=== PATIENT | female | born 1960 | race African-American/Black ===

== ENCOUNTER 2017-05-04 10:24 | Observation (INO) | payer MEDICARE, OTHER ==
[2017-05-04] VITALS (8 sets, daily range): BP systolic 99–139; BP diastolic 56–80; PULSE 56–80; RESP 15–18; TEMP 98–98.4; O2SAT 96–100
[~2017-05-04] VITALS: Ht 160 cm; Wt 120.0 kg
[~2017-05-04 10:24] MED LIST: ADVA250A INH; ALBU0.63 NEB; AMLO10TA2 PO; CARV12.5 PO; FISHCAP4 PO; FLUT1SPR5 EACH NARE; GABA300C5 PO; HYDR-3535 PO; IBUP800T23 PO; LIPI20TA PO; LOSA100T3 PO; METF500T PO; MONT10TA2 PO; MULTTAB67 PO; NITR1SUB3 SL; XARE20TA PO
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
[2017-05-04] MEDS ORDERED: ASPI81CH CHEW (10:41)
[2017-05-04] MEDS ORDERED: PLAV75TA29 PO (10:41)
[2017-05-04] MEDS ORDERED: NITR0.1D T-DERMAL (10:41)
[2017-05-04] MEDS ORDERED: SODIUM CHLORIDE 0.9% FLUSH 10 ML FLUSH IVF PRN (10:45)
[2017-05-04 11:14] LABS: AUTOMATED NEUTROPHIL # 3.5 TH/MM3 (1.8-7.7); BASOPHIL % 0.4 % (0.0-2.0); EOSINOPHIL # 0.2 TH/MM3 (0-0.4); EOSINOPHIL % 2.4 % (0.0-4.0); HEMATOCRIT 36.5 % (35.0-46.0); HEMO FLAGS DIFF FINAL; LYMPH % 35.3 % (9.0-44.0); LYMPHOCYTE # 2.4 TH/MM3 (1.0-4.8); MEAN CORPUSCULAR HEMOGLOBIN 31.5 PG (27.0-34.0); MEAN CORPUSCULAR HGB CONC 32.9 % (32.0-36.0); MONO % 9.5 % (0.0-8.0); NEUT % 52.4 % (16.0-70.0); PLATELET COUNT 229 TH/MM3 (150-450); RED CELL DISTRIBUTION WIDTH 15.3 % (11.6-17.2); WHITE BLOOD COUNT 6.8 TH/MM3 (4.0-11.0)
--- NOTE | 2017-05-04 11:14 | RADRPT ---
EXAM DATE/TIME: 05/04/2017 10:55 [facility] COMPARISON: KNEE RIGHT COMPLETE (4VWS), June 13, 2012, 11:18. INDICATIONS : Knee pain. MEDICAL HISTORY : Chronic knee pain. Arthritis. SURGICAL HISTORY : Gel knee injection. ENCOUNTER: Initial ACUITY: 2 months PAIN SCORE: 6/10 LOCATION: Right knee. FINDINGS: Moderate osteoporosis of the knee involving all 3 compartments. This is most pronounced at the latera l tibiofemoral compartment with moderate to severe narrowing, sclerosis and marginal osteophytosis. S mall knee joint effusion. No fracture or dislocation. CONCLUSION: Small effusion and osteoarthritis. Morro Lindsey MD on May 04, 2017 at 11:12 Board Certified Radiologist. This report was verified electronically.
--- NOTE | 2017-05-04 11:14 | RADRPT ---
EXAM DATE/TIME: 05/04/2017 10:51 [facility] COMPARISON: No previous studies available for comparison. INDICATIONS : Shortness of breath and chest pain. MEDICAL HISTORY : Chronic obstructive pulmonary disease. Myocardial infarction. SURGICAL HISTORY : Cardiac stent x3. ENCOUNTER: Initial ACUITY: 1 day PAIN SCORE: 1/10 LOCATION: Bilateral chest FINDINGS: Cardiomegaly. Degenerative changes of the spine. Clear lungs. CONCLUSION: No acute disease. Morro Lindsey MD on May 04, 2017 at 11:12 Board Certified Radiologist. This report was verified electronically.
[2017-05-04 11:23] LABS: APTT (PATIENT) 35.1 SEC (24.3-30.1); INTERNATIONAL NORMALIZED RATIO 1.2 RATIO; PROTHROMBIN TIME - PATIENT 13.5 SEC (9.8-11.6)
[2017-05-04 11:31] LABS: BICARBONATE 26.7 MEQ/L (21.0-32.0); MAGNESIUM 2.2 MG/DL (1.5-2.5); POTASSIUM 4.2 MEQ/L (3.5-5.1)
[2017-05-04 11:47] LABS: CKMB 1.7 NG/ML (0.5-3.6)
[2017-05-04] MEDS ORDERED: SODIUM CHLORIDE 0.9% FLUSH 10 ML FLUSH IV FLUSH PRN (13:15)
[2017-05-04] MEDS ORDERED: ACETAMINOPHEN/HYDROcodone 325 MG/5 MG TAB PO PRN (13:15)
[2017-05-04] MEDS ORDERED: ACETAMINOPHEN 325 MG TAB PO PRN ×2 (13:15)
[2017-05-04] MEDS ORDERED: NALOXONE HCL 0.4 MG/ML AMP IV PRN (13:15)
[2017-05-04] MEDS ORDERED: SODIUM CHLOR 0.9% 1000 ML INJ 1,000 ML IV SCH (14:30)
[2017-05-04] MEDS: RIVAROXABAN 20 MG TAB PO SCH (14:55)
[2017-05-04] MEDS ORDERED: cloNIDine HCL 0.1 MG TAB PO PRN (15:30)
--- NOTE | 2017-05-04 15:34 | HHI.HP ---
[facility] Karlos Du MD Admission Diagnosis Chest pain/TAO Diagnoses: Chief Complaint: Chest pain, shortness breath, knee pain Travel History International Travel<30 Days: No Contact w/Intl Traveler <30 Da: No Traveled to Known Affected Are: No History of Present Illness Written by Matt Massey, acting as scribe for Dr. Tracy on 05/04/17 at 15:23. 56-year-old female with a past medical history of CAD, DM, DVT, HLD, HTN, COPD, chronic pain who presented for chest pain and shortness of breath. The patient had 2 stents put in on May 01 by her customs investigator, Dr. Walker. She states the pain improved and she went home. After she went home the pain started to come back. She states that last night she was having some midsternal chest discomfort, 8/10 in severity. She states she put on her nitroglycerin patch and the pain decreased enough so that she can go to sleep. When she woke up this morning she had continued pain and worsening associated shortness of breath. Patient does have "a little" some chest discomfort when she takes a deep breath. She does have some pain whenever her chest is touched. The chest pain is worse with standing up and moving. She also had worsening of her chronic right knee pain when she woke up this morning as well. She's also noticed some swelling and discomfort from her right wrist where they did the catheterization. She follows with orthopedics at [facility] and is currently on hold for knee replacements due to chronic DVTs. She has been receiving joint injections for the knee pain. She's had decreased appetite recently this week. She denies any fevers or chills. She has cold sweats which are normal for her. She reports normal bowel movements. Currently her chronic back pain as 9/ 10 in severity. Review of Systems Except as stated in HPI: all other systems reviewed are Neg Past Family Social History Past Medical History Diabetes mellitus Coronary artery disease Chronic lower extremity DVTs Hyperlipidemia Hypertension COPD Chronic back and knee pain due to arthritis Neuropathy Past Surgical History Cardiac catheterizations with stent placements, prior to May 01 had a stent put in in 2007 Reported Medications Reported Meds & Active Scripts Active Reported Nitro-Dur Patch 24 HR (Nitroglycerin) 0.1 Mg/Hr Patch 0.1 Mg T-DERMAL DAILY Plavix (Clopidogrel Bisulfate) 75 Mg Tab 75 Mg PO DAILY Aspirin 81 Mg Chew 81 Mg CHEW DAILY Advair Diskus Inh (Fluticasone-Salmeterol Inh) 250-50 Mcg/Blist Aer 1 Puff INH BID Rinse mouth after use. Albuterol Neb (Albuterol Sulfate) 0.63 Mg/3 Ml Neb 0.63 Mg NEB Q6HR NEB PRN Singulair (Montelukast Sodium) 10 Mg Tab 10 Mg PO HS Amlodipine (Amlodipine Besylate) 10 Mg Tab 10 Mg PO DAILY Metformin (Metformin HCl) 500 Mg Tab 500 Mg PO BIDPC With meals Xarelto (Rivaroxaban) 20 Mg Tab 20 Mg PO DAILY Lipitor (Atorvastatin Calcium) 20 Mg Tab 20 Mg PO HS Nitroglycerin SL (Nitroglycerin) 0.4 Mg Subl 0.4 Mg SL DIRECTED PRN ONE TABLET UNDER THE TONGUE NEEDED FOR CHEST PAIN, MAY REPEAT EVERY FIVE MINUTES FOR A TOTAL OF 3 DOSES OR CALL 911 IF NO RELIEF Multiple Vitamin 1 Tab 1 Tab PO DAILY Losartan-Hydrochlorothiazide 100-12.5 Mg Tab 1 Tab PO DAILY Lortab (Hydrocodone-Acetaminophen) 10-325 Mg Tab 1 Tab PO Q6H PRN Gabapentin 300 Mg Cap 1,200 Mg PO BID Gabapentin 300 Mg Cap 900 Mg PO DAILY Fish Oil + D3 (Fish Oil-Cholecalciferol) 1,200-1,000 Mg-Unit Cap 1 Cap PO DAILY Coreg (Carvedilol) 12.5 Mg Tab 12.5 Mg PO BID Allergies: Coded Allergies: No Known Allergies (Verified , 01/16/12) Active Ordered Medications Current Medications Medications (Trade) Dose Ordered Sig/Gina Route Start Time Stop Time Status Last Admin (Norvasc) 10 mg DAILY PO 05/05/17 09:00 (Aspirin Chew) 81 mg DAILY CHEW 05/05/17 09:00 (Lipitor) 20 mg HS PO 05/04/17 21:00 (Coreg) 12.5 mg BID PO 05/04/17 21:00 (Plavix) 75 mg DAILY PO 05/05/17 09:00 (Neurontin) 600 mg TID PO 05/04/17 18:00 (Singulair) 10 mg HS PO 05/04/17 21:00 (Nitro-Dur 0.1 Mg Patch.24hr) 1 patch DAILY T-DERMAL 05/05/17 09:00 (Xarelto) 20 mg DAILY PO 05/04/17 15:00 05/04/17 14:55 (Symbicort 160-4.5 Inh) 2 puff BID INH 05/04/17 21:00 Sodium Chloride 1,000 ml @ 75 mls/hr [id number] IV 05/04/17 14:30 05/05/17 03:49 05/04/17 14:55 (NS Flush) 2 ml UNSCH PRN IV FLUSH 05/04/17 13:15 (NS Flush) 2 ml BID IV FLUSH 05/04/17 21:00 (Tylenol) 650 mg Q4H PRN PO 05/04/17 13:15 (Tylenol) 650 mg Q6H PRN PO 05/04/17 13:15 ([place] 5-325 Mg) 1 tab Q4H PRN PO 05/04/17 13:15 ([place] 10-325 Mg) 1 tab Q4H PRN PO 05/04/17 13:15 (Narcan Inj) 0.4 mg UNSCH PRN IV 05/04/17 13:15 (Breanne-Colace) 1 tab BID PO 05/04/17 21:00 Miscellaneous Information 1 DAILY T-DERMAL 05/05/17 09:00 (Catapres) 0.1 mg Q6H PRN PO 05/04/17 15:30 UNV Family History Diabetes mellitus Coronary artery disease Hypertension Social History Quit smoking 2 years ago Occasionally has a glass of wine Physical Exam Vital Signs Vital Signs Date Time Temp Pulse Resp B/P (MAP) Pulse Ox O2 Delivery O2 Flow Rate FiO2 05/04/17 14:18 98.4 63 16 121/68 (85) 100 05/04/17 14:14 05/04/17 13:46 98 Nasal Cannula 2.00 05/04/17 13:03 56 18 107/56 (73) 97 Nasal Cannula 2.00 05/04/17 11:06 78 18 05/04/17 10:45 96 Nasal Cannula 2.00 05/04/17 10:42 96 Nasal Cannula 2.00 05/04/17 10:27 98.2 80 15 139/72 (94) 98 Physical Exam GENERAL: Well-developed well-nourished. Morbidly obese. In no acute distress. Appears comfortable. SKIN: Warm and dry. No lesions noted. HEENT: Normocephalic. Pupils equal and round. Mucous membranes pink and moist. CARDIOVASCULAR: Regular rate and rhythm. Distant heart sounds. Tender to palpation of the sternum. RESPIRATORY: No accessory muscle use. Clear to auscultation. Breath sounds equal bilaterally. GASTROINTESTINAL: Abdomen soft, non-tender, nondistended. Bowel sounds x4. MUSCULOSKELETAL: Right knee with mild swelling. Limited ROM of right knee secondary to pain. Mild swelling of the right wrist. NEUROLOGICAL: Awake and alert. No focal neurological deficits. Moves upper and lower extremities spontaneously. Normal speech. PSYCHIATRIC: Appropriate mood and affect; insight and judgment normal. Laboratory Laboratory Tests Test 05/04/17 10:50 White Blood Count 6.8 Red Blood Count 3.80 Hemoglobin 12.0 Hematocrit 36.5 Mean Corpuscular Volume 96.0 Mean Corpuscular Hemoglobin 31.5 Mean Corpuscular Hemoglobin Concent 32.9 Red Cell Distribution Width 15.3 Platelet Count 229 Mean Platelet Volume 9.0 Neutrophils (%) (Auto) 52.4 Lymphocytes (%) (Auto) 35.3 Monocytes (%) (Auto) 9.5 Eosinophils (%) (Auto) 2.4 Basophils (%) (Auto) 0.4 Neutrophils # (Auto) 3.5 Lymphocytes # (Auto) 2.4 Monocytes # (Auto) 0.6 Eosinophils # (Auto) 0.2 Basophils # (Auto) 0.0 CBC Comment DIFF FINAL Differential Comment Prothrombin Time 13.5 Prothromb Time International Ratio 1.2 Activated Partial Thromboplast Time 35.1 Blood Urea Nitrogen 20 Creatinine 2.19 Random Glucose 140 Calcium Level 8.6 Magnesium Level 2.2 Sodium Level 141 Potassium Level 4.2 Chloride Level 107 Carbon Dioxide Level 26.7 Anion Gap 7 Estimat Glomerular Filtration Rate 28 Total Creatine Kinase 304 Creatine Kinase MB 1.7 Creatine Kinase MB % 0.6 Troponin I 0.09 Result Diagram: 05/04/17 1050 05/04/17 1050 Imaging Last Impressions Knee X-Ray 05/04/17 1038 Signed Impressions: Service Date/Time: Thursday, May 04, 2017 10:55 - CONCLUSION: Small effusion and osteoarthritis. Morro Lindsey MD Chest X-Ray 05/04/17 1037 Signed Impressions: Service Date/Time: Thursday, May 04, 2017 10:51 - CONCLUSION: No acute disease. MD Cruz Haney VTE Risk Assessment Cruz VTE Risk Assessment: Mod/High Risk (score >= 2) Caprini Risk Assessment Model Point Value = 1 Point Value = 2 Point Value = 3 Point Value = 5 Age 41-60 Minor surgery BMI > 25 kg/m2 Swollen legs Varicose veins or History of unexplained or recurrent spontaneous Oral contraceptives or hormone replacement Sepsis (< 1 month) Serious lung disease, including pneumonia (< 1 month) Abnormal pulmonary function Acute myocardial infarction Congestive heart failure (< 1 month) History of inflammatory bowel disease Medical patient at bed rest Age 61-74 Arthroscopic surgery Major open surgery (> 45 min) Laparoscopic surgery (> 45 min) Malignancy Confined to bed (> 72 hours) Immobilizing plaster cast Central venous access Age >= 75 History of VTE Family history of VTE Factor V Leiden Prothrombin [id number] Lupus anticoagulant Anticardiolipin antibodies Elevated serum homocysteine Heparin-induced thrombocytopenia Other congenital or acquired thrombophilia Stroke (< 1 month) Elective arthroplasty Hip, pelvis, or leg fracture Acute spinal cord injury (< 1 month) Prophylaxis Regimen Total Risk Factor Score Risk Level Prophylaxis Regimen 0-1 Low Early ambulation 2 Moderate Order ONE of the following: *Sequential Compression Device (SCD) *Heparin 5000 units SQ BID 3-4 Higher Order ONE of the following medications: *Heparin 5000 units SQ TID *Enoxaparin/Lovenox 40 mg SQ daily (WT < 150 kg, CrCl > 30 mL/min) *Enoxaparin/Lovenox 30 mg SQ daily (WT < 150 kg, CrCl > 10-29 mL/min) *Enoxaparin/Lovenox 30 mg SQ BID (WT < 150 kg, CrCl > 30 mL/min) AND/OR *Sequential Compression Device (SCD) 5 or more Highest Order ONE of the following medications: *Heparin 5000 units SQ TID (Preferred with Epidurals) *Enoxaparin/Lovenox 40 mg SQ daily (WT < 150 kg, CrCl > 30 mL/min) *Enoxaparin/Lovenox 30 mg SQ daily (WT < 150 kg, CrCl > 10-29 mL/min) *Enoxaparin/Lovenox 30 mg SQ BID (WT < 150 kg, CrCl > 30 mL/min) AND *Sequential Compression Device (SCD) Assessment and Plan Assessment and Plan 56-year-old female with a past medical history of CAD, DM, DVT, HLD, HTN, COPD, chronic pain who presented for chest pain and shortness of breath, acute on chronic right knee pain Chest pain and shortness of breath: Patient recently had catheterization with 2 stents placed on 05/01. Per ED report, troponin 0.09 is near patient's baseline per cardiology communication. Reviewed: Troponin 0.09. EKG with nonspecific T-wave changes. -Trend cardiac enzymes and EKGs -Consult patient's customs investigator -Continue aspirin, Plavix, statin, Nitropatch, carvedilol - telemetry Right knee pain: Acute on chronic secondary to arthritis. X-ray shows mild arthritis and effusion. -Continue pain control with [place] -PT -Continue outpatient follow-up with orthopedics Acute kidney injury: Suspect secondary to diuretics and poor appetite. Creatinine 2.19, previously 0.83 on 02/10/13. -Hold home losartan/HCTZ for now -IVF and follow-up BMP Diabetes mellitus: -Hold home metformin -Monitor Accu-Cheks and cover with SSI -Continue gabapentin for neuropathy Chronic DVTs: -Continue Xarelto Code Status Full code, but does not want any prolonged ventilation Discussed Condition With Patient, ED staff Attending Statement This note was transcribed by sherrie Massey. I, Dr. Marc Tracy personally performed the history, physical exam, and medical decision making; and confirmed the accuracy of the information in the transcribed note. Authenticated by Dr. Marc Tracy on 05/04/17 at 16:27. Matt Massey May 04, 2017 15:34 Marc Tracy DO May 04, 2017 16:27
[2017-05-04] MEDS: SODIUM CHLOR 0.9% 1000 ML INJ 1,000 ML IV SCH (15:45)
[2017-05-04] MEDS ORDERED: GLUCAGON 1 MG/ML VIAL OTHER PRN (16:00)
[2017-05-04] MEDS ORDERED: DEXTROSE 50% IN WATER 50 ML VIAL(D50) IV PRN (16:00)
[2017-05-04] MEDS: INSULIN ASPART SUPPLEMENTAL SCALE SQ SCH ×2 (16:00→21:00)
[2017-05-04] MEDS: ACETAMINOPHEN/HYDROcodone 325 MG/10 MG TAB PO PRN (16:27)
--- NOTE | 2017-05-04 17:33 | EKG ---
Date Performed: 05/04/2017 Time Performed: 11:05:55 PTAGE: 56 years EKG: Sinus rhythm SEPTAL MYOCARDIAL INFARCTION MODERATE T-WAVE ABNORMALITY, CONSIDER ANTERIOR ISCHEMIA ABNORMAL ECG PREVIOUS TRACING : 01/16/2012 11.17 DOCTOR: Moustapha Armendariz Interpretating Date/Time 05/04/2017 17:32:41
[2017-05-04] MEDS: GABAPENTIN 300 MG CAP PO SCH (18:18)
[2017-05-04] MEDS: BUDESONIDE-FORMOTEROL 160/4.5 MCG INHALER INH SCH (21:00)
[2017-05-04] MEDS: MONTELUKAST SODIUM 10 MG TAB PO SCH (21:23)
[2017-05-04] MEDS: ATORVASTATIN 20 MG TAB PO SCH (21:23)
[2017-05-04] MEDS: DOCUSATE SODIUM 50 MG/SENNA 8.6 MG TAB PO SCH (21:23)
[2017-05-04] MEDS: SODIUM CHLORIDE 0.9% FLUSH 10 ML FLUSH IV FLUSH SCH (21:24)
[2017-05-04] MEDS: CARVEDILOL 12.5 MG TAB PO SCH (21:24)
[2017-05-05] VITALS (13 sets, daily range): BP systolic 90–128; BP diastolic 57–97; PULSE 57–78; RESP 18; TEMP 96.8–98.4; O2SAT 96–98
[2017-05-05] MEDS: SODIUM CHLOR 0.9% 1000 ML INJ 1,000 ML IV SCH ×2 (04:53→10:01)
[2017-05-05] MEDS: INSULIN ASPART SUPPLEMENTAL SCALE SQ SCH ×4 (07:00→21:00)
[2017-05-05] MEDS: REMOVE OLD NITRO-DUR (NITROGLYCERIN) PATCH T-DERMAL SCH (09:00)
[2017-05-05] MEDS: SODIUM CHLORIDE 0.9% FLUSH 10 ML FLUSH IV FLUSH SCH ×2 (09:00→21:00)
--- NOTE | 2017-05-05 09:06 | EKG ---
Date Performed: 05/04/2017 Time Performed: 23:13:17 PTAGE: 56 years EKG: Sinus rhythm SEPTAL MYOCARDIAL INFARCTION ABNORMAL ECG PREVIOUS TRACING : 05/04/2017 17.24 DOCTOR: Moustapha Armendariz Interpretating Date/Time 05/05/2017 09:05:15
--- NOTE | 2017-05-05 09:22 | EKG ---
Date Performed: 05/04/2017 Time Performed: 17:24:01 PTAGE: 56 years EKG: Sinus rhythm SEPTAL MYOCARDIAL INFARCTION ABNORMAL ECG INTERPRETATION BASED ON A DEFAULT AGE OF 40 YEARS NO PREVIOUS TRACING DOCTOR: Moustapha Armendariz Interpretating Date/Time 05/05/2017 09:20:45
[2017-05-05] MEDS: CLOPIDOGREL 75 MG TAB PO SCH (10:02)
[2017-05-05] MEDS: DOCUSATE SODIUM 50 MG/SENNA 8.6 MG TAB PO SCH ×2 (10:02→21:12)
[2017-05-05] MEDS: BUDESONIDE-FORMOTEROL 160/4.5 MCG INHALER INH SCH ×2 (10:02→21:10)
[2017-05-05] MEDS: ASPIRIN 81 MG CHEW TAB CHEW SCH (10:03)
[2017-05-05] MEDS: GABAPENTIN 300 MG CAP PO SCH ×3 (10:03→18:05)
[2017-05-05] MEDS: CARVEDILOL 12.5 MG TAB PO SCH ×2 (10:03→21:14)
--- NOTE | 2017-05-05 10:03 | HHI.PR ---
Subjective Remarks Follow up for chest pain, TAO. The patient reports feeling well today, denies any current chest pain. She does report an mild episode of chest pain last night , located substernally, associated with shortness of breath, lasted 5 minutes then went away on its own. She wants to go home today if possible. She has no other medical complaints at this time. Objective Vitals Vital Signs Date Time Temp Pulse Resp B/P (MAP) Pulse Ox O2 Delivery O2 Flow Rate FiO2 05/05/17 08:21 98.3 60 18 90/57 (68) 96 05/05/17 07:18 98 21 05/05/17 04:00 60 05/05/17 00:23 98.2 64 18 122/74 (90) 96 05/05/17 00:00 63 05/04/17 20:47 99 05/04/17 19:28 98.0 62 18 127/80 (96) 05/04/17 18:20 98.0 69 16 99/62 (74) 100 05/04/17 14:18 98.4 63 16 121/68 (85) 100 05/04/17 14:14 05/04/17 13:46 98 Nasal Cannula 2.00 05/04/17 13:03 56 18 107/56 (73) 97 Nasal Cannula 2.00 05/04/17 11:06 78 18 05/04/17 10:45 96 Nasal Cannula 2.00 05/04/17 10:42 96 Nasal Cannula 2.00 05/04/17 10:27 98.2 80 15 139/72 (94) 98 I/O 05/04/17 05/04/17 05/04/17 05/05/17 05/05/17 05/05/17 07:00 15:00 23:00 07:00 15:00 23:00 Intake Total 1000 ml Balance 1000 ml Intake IV Total 1000 ml # Voids 1 2 Result Diagram: 05/04/17 1050 05/04/17 1050 Imaging Last Impressions Knee X-Ray 05/04/17 1038 Signed Impressions: Service Date/Time: Thursday, May 04, 2017 10:55 - CONCLUSION: Small effusion and osteoarthritis. Morro Lindsey MD Chest X-Ray 05/04/17 1037 Signed Impressions: Service Date/Time: Thursday, May 04, 2017 10:51 - CONCLUSION: No acute disease. Morro Lindsey MD Objective Remarks GENERAL: Well-nourished, well-developed pleasant middle aged obese female patient in [facility]. SKIN: Warm and dry. No rash. HEENT: Normocephalic. Atraumatic. Pupils equal and round. Mucous membranes pink and moist. CARDIOVASCULAR: Regular rate and rhythm. S1, S2 noted. No murmur appreciated. RESPIRATORY: No accessory muscle use. Clear to auscultation. Breath sounds equal bilaterally. GASTROINTESTINAL: Abdomen soft, non-tender, nondistended. Normoactive bowel sounds x4. MUSCULOSKELETAL: No obvious deformities. Extremities without clubbing, cyanosis , or edema. NEUROLOGICAL: Awake and alert. No obvious cranial nerve deficits. Motor grossly within normal limits. Normal speech. PSYCHIATRIC: Appropriate mood and affect; insight and judgment normal. Medications and IVs Current Medications Medications (Trade) Dose Ordered Sig/Gina Route Start Time Stop Time Status Last Admin (Norvasc) 10 mg DAILY PO 05/05/17 09:00 (Aspirin Chew) 81 mg DAILY CHEW 05/05/17 09:00 (Lipitor) 20 mg HS PO 05/04/17 21:00 05/04/17 21:23 (Coreg) 12.5 mg BID PO 05/04/17 21:00 05/04/17 21:24 (Plavix) 75 mg DAILY PO 05/05/17 09:00 (Neurontin) 600 mg TID PO 05/04/17 18:00 05/04/17 18:18 (Singulair) 10 mg HS PO 05/04/17 21:00 05/04/17 21:23 (Nitro-Dur 0.1 Mg Patch.24hr) 1 patch DAILY T-DERMAL 05/05/17 09:00 (Xarelto) 20 mg DAILY PO 05/04/17 15:00 05/04/17 14:55 (Symbicort 160-4.5 Inh) 2 puff BID INH 05/04/17 21:00 (NS Flush) 2 ml UNSCH PRN IV FLUSH 05/04/17 13:15 (NS Flush) 2 ml BID IV FLUSH 05/04/17 21:00 05/04/17 21:24 (Tylenol) 650 mg Q4H PRN PO 05/04/17 13:15 (Tylenol) 650 mg Q6H PRN PO 05/04/17 13:15 ([place] 5-325 Mg) 1 tab Q4H PRN PO 05/04/17 13:15 ([place] 10-325 Mg) 1 tab Q4H PRN PO 05/04/17 13:15 05/04/17 16:27 (Narcan Inj) 0.4 mg UNSCH PRN IV 05/04/17 13:15 (Breanne-Colace) 1 tab BID PO 05/04/17 21:00 05/04/17 21:23 Miscellaneous Information 1 DAILY T-DERMAL 05/05/17 09:00 (Catapres) 0.1 mg Q6H PRN PO 05/04/17 15:30 Sodium Chloride 1,000 ml @ 75 mls/hr [id number] IV 05/04/17 15:45 (D50w (Vial) Inj) 50 ml UNSCH PRN IV 05/04/17 16:00 (Glucagon Inj) 1 mg UNSCH PRN OTHER 05/04/17 16:00 (NovoLOG SUPPLEMENTAL SCALE) 1 ACHS SLIDING SCALE SQ 05/04/17 16:00 A/P Assessment and Plan 56-year-old female with a past medical history of CAD, DM, DVT, HLD, HTN, COPD, chronic pain who presented for chest pain and shortness of breath, acute on chronic right knee pain Chest pain and Dyspnea: Patient recently had catheterization with 2 stents placed 05/[address] Ross. Per ED report, troponin 0.09 is near patient's baseline per communication with cardiology. Reviewed: Troponin 0.09, 0.09, 0.10. EKG with nonspecific T-wave changes. -Continue aspirin, Plavix, statin, Nitropatch, carvedilol -Monitor on telemetry -Consult patient's preflight inspector for further recommendations Right knee pain: Acute on chronic secondary to arthritis. X-ray shows mild arthritis and effusion. -Continue pain control with [place] -Consult PT, no PT needed after discharge -Continue outpatient follow-up with orthopedics Acute kidney injury: Suspect secondary to recent contrast dye, on diuretics, and poor appetite. Creatinine 2.19, previously 0.83 on 02/10/13. -Held home losartan/HCTZ for now -Continue IVF and follow-up BMP Diabetes mellitus: -Hold home metformin with TAO as above -Monitor Accu-Cheks and cover with SSI -Continue gabapentin for neuropathy Chronic DVTs: -Continue Xarelto Code Status Full code, but does not want any prolonged ventilation Discharge Planning 1000hrs: Awaiting repeat BMP and evaluation by cardiology. Jennifer Kitchen PA-C May 05, 2017 10:03 am
[2017-05-05] MEDS: RIVAROXABAN 20 MG TAB PO SCH (10:04)
[2017-05-05] MEDS: NITROGLYCERIN 0.1 MG/HR PATCH T-DERMAL SCH (10:04)
[2017-05-05] MEDS: ACETAMINOPHEN/HYDROcodone 325 MG/10 MG TAB PO PRN ×2 (10:14→21:13)
[2017-05-05 12:44] LABS: AUTOMATED NEUTROPHIL # 2.5 TH/MM3 (1.8-7.7); BASOPHIL % 0.3 % (0.0-2.0); EOSINOPHIL # 0.1 TH/MM3 (0-0.4); EOSINOPHIL % 1.9 % (0.0-4.0); HEMATOCRIT 35.8 % (35.0-46.0); HEMO FLAGS DIFF FINAL; LYMPH % 41.6 % (9.0-44.0); LYMPHOCYTE # 2.2 TH/MM3 (1.0-4.8); MEAN CELL VOLUME 94.9 FL (80.0-100.0); MEAN CORPUSCULAR HEMOGLOBIN 31.5 PG (27.0-34.0); MEAN CORPUSCULAR HGB CONC 33.2 % (32.0-36.0); MONO % 8.5 % (0.0-8.0); NEUT % 47.7 % (16.0-70.0); PLATELET COUNT 214 TH/MM3 (150-450); RED BLOOD COUNT 3.77 MIL/MM3 (4.00-5.30); RED CELL DISTRIBUTION WIDTH 15.1 % (11.6-17.2); WHITE BLOOD COUNT 5.2 TH/MM3 (4.0-11.0)
[2017-05-05 13:12] LABS: ANION GAP 7 MEQ/L (5-15); AST (GOT) 18 U/L (15-37); BLOOD UREA NITROGEN 17 MG/DL (7-18); CHLORIDE 104 MEQ/L (98-107); GLOMERULAR FILTRATION RATE 37 ML/MIN (>89); POTASSIUM 3.5 MEQ/L (3.5-5.1); SODIUM (NA) 141 MEQ/L (136-145)
[2017-05-05 13:13] LABS: ALT (GPT) 21 U/L (10-53)
[2017-05-05 13:15] LABS: ALKALINE PHOSPHATASE 93 U/L (45-117)
--- NOTE | 2017-05-05 18:27 | PD.CONS ---
HPI Service Cardiology Consult Requested By Dr. Matt Massey Reason for Consult Angina pectoris, known CAD Primary Care Physician Karlos Du MD History of Present Illness 56-year-old female, presented for knee pain, and also reported of chest pain and shortness of breath. She underwent LHC on 05/01/17, s/p LAD and RCA stenting at [facility]. She was doing well until 2 days ago, she developed some midsternal chest discomfort, 8/10 in severity, relieved with nitroglycerin patch so that she can go to sleep. When she woke up the next morning she had continued pain and worsening associated shortness of breath. Patient does have "a little" some chest discomfort when she takes a deep breath. She does have some pain whenever her chest is touched. The chest pain is worse with standing up and moving. She also had worsening of her chronic right knee pain when she woke up this morning as well. She's also noticed some swelling and discomfort from her right wrist where they did the catheterization. She follows with orthopedics at [facility] and is currently on hold for knee replacements due to chronic DVTs. She has been receiving joint injections for the knee pain. Currently her chronic back pain as 9/10 in severity. Review of Systems Consitutional: DENIES: Fatigue, Fever, Chills, Weight gain, Weight loss Eyes: DENIES: Amaurosis [place], Change in vision HEENT: DENIES: Lightheadedness, Change in hearing Respiratory: COMPLAINS OF: See HPI Cardiovascular: COMPLAINS OF: See HPI Gastrointestinal: DENIES: Nausea, Vomiting, Change in bowel habits, Reflux, Bloody stools, Melena Genitourinary: DENIES: Urinary incontinence, Difficulty voiding Integumentary: DENIES: Rash Neurologic: DENIES: Tingling or numbness, Memory problems, Poor Balance, Stroke symptoms Musculoskeletal: COMPLAINS OF: Joint pain, DENIES: Muscle pain, Limited range of motion, Back pain Psychiatric: DENIES: Anxiety, Depression, Sleep disturbances Hematologic: DENIES: Bruising tendencies, Bleeding tendencies Endocrine: DENIES: Weight gain, Weight loss, Thyroid disease Past Family Social History Allergies: Coded Allergies: No Known Allergies (Verified , 01/16/12) Past Medical History CAD, DM, DVT, HLD, HTN, COPD, chronic pain Reported Medications Reported Meds & Active Scripts Active Reported Nitro-Dur Patch 24 HR (Nitroglycerin) 0.1 Mg/Hr Patch 0.1 Mg T-DERMAL DAILY Plavix (Clopidogrel Bisulfate) 75 Mg Tab 75 Mg PO DAILY Aspirin 81 Mg Chew 81 Mg CHEW DAILY Advair Diskus Inh (Fluticasone-Salmeterol Inh) 250-50 Mcg/Blist Aer 1 Puff INH BID Rinse mouth after use. Albuterol Neb (Albuterol Sulfate) 0.63 Mg/3 Ml Neb 0.63 Mg NEB Q6HR NEB PRN Singulair (Montelukast Sodium) 10 Mg Tab 10 Mg PO HS Amlodipine (Amlodipine Besylate) 10 Mg Tab 10 Mg PO DAILY Metformin (Metformin HCl) 500 Mg Tab 500 Mg PO BIDPC With meals Xarelto (Rivaroxaban) 20 Mg Tab 20 Mg PO DAILY Lipitor (Atorvastatin Calcium) 20 Mg Tab 20 Mg PO HS Nitroglycerin SL (Nitroglycerin) 0.4 Mg Subl 0.4 Mg SL DIRECTED PRN ONE TABLET UNDER THE TONGUE NEEDED FOR CHEST PAIN, MAY REPEAT EVERY FIVE MINUTES FOR A TOTAL OF 3 DOSES OR CALL 911 IF NO RELIEF Multiple Vitamin 1 Tab 1 Tab PO DAILY Losartan-Hydrochlorothiazide 100-12.5 Mg Tab 1 Tab PO DAILY Lortab (Hydrocodone-Acetaminophen) 10-325 Mg Tab 1 Tab PO Q6H PRN Gabapentin 300 Mg Cap 1,200 Mg PO BID Gabapentin 300 Mg Cap 900 Mg PO DAILY Fish Oil + D3 (Fish Oil-Cholecalciferol) 1,200-1,000 Mg-Unit Cap 1 Cap PO DAILY Coreg (Carvedilol) 12.5 Mg Tab 12.5 Mg PO BID Active Ordered Medications Current Medications Medications (Trade) Dose Ordered Sig/Gina Route Start Time Stop Time Status Last Admin (Norvasc) 10 mg DAILY PO 05/05/17 09:00 05/05/17 10:03 (Aspirin Chew) 81 mg DAILY CHEW 05/05/17 09:00 05/05/17 10:03 (Lipitor) 20 mg HS PO 05/04/17 21:00 05/04/17 21:23 (Coreg) 12.5 mg BID PO 05/04/17 21:00 05/05/17 10:03 (Plavix) 75 mg DAILY PO 05/05/17 09:00 05/05/17 10:02 (Neurontin) 600 mg TID PO 05/04/17 18:00 05/05/17 18:05 (Singulair) 10 mg HS PO 05/04/17 21:00 05/04/17 21:23 (Nitro-Dur 0.1 Mg Patch.24hr) 1 patch DAILY T-DERMAL 05/05/17 09:00 05/05/17 10:04 (Xarelto) 20 mg DAILY PO 05/04/17 15:00 05/05/17 10:04 (Symbicort 160-4.5 Inh) 2 puff BID INH 05/04/17 21:00 05/05/17 10:02 (NS Flush) 2 ml UNSCH PRN IV FLUSH 05/04/17 13:15 (NS Flush) 2 ml BID IV FLUSH 05/04/17 21:00 05/04/17 21:24 (Tylenol) 650 mg Q4H PRN PO 05/04/17 13:15 (Tylenol) 650 mg Q6H PRN PO 05/04/17 13:15 ([place] 5-325 Mg) 1 tab Q4H PRN PO 05/04/17 13:15 ([place] 10-325 Mg) 1 tab Q4H PRN PO 05/04/17 13:15 05/05/17 10:14 (Narcan Inj) 0.4 mg UNSCH PRN IV 05/04/17 13:15 (Breanne-Colace) 1 tab BID PO 05/04/17 21:00 05/05/17 10:02 Miscellaneous Information 1 DAILY T-DERMAL 05/05/17 09:00 (Catapres) 0.1 mg Q6H PRN PO 05/04/17 15:30 Sodium Chloride 1,000 ml @ 75 mls/hr [id number] IV 05/04/17 15:45 05/05/17 10:01 (D50w (Vial) Inj) 50 ml UNSCH PRN IV 05/04/17 16:00 (Glucagon Inj) 1 mg UNSCH PRN OTHER 05/04/17 16:00 (NovoLOG SUPPLEMENTAL SCALE) 1 ACHS SLIDING SCALE SQ 05/04/17 16:00 05/05/17 12:44 Family History Diabetes mellitus Coronary artery disease Hypertension Social History Quit smoking 2 years ago Occasionally has a glass of wine Physical Exam Vital Signs Vital Signs Date Time Temp Pulse Resp B/P (MAP) Pulse Ox O2 Delivery O2 Flow Rate FiO2 05/05/17 16:33 97.8 68 18 126/60 (82) 96 05/05/17 12:20 96.8 64 18 128/63 (84) 96 05/05/17 11:41 62 05/05/17 08:21 98.3 60 18 90/57 (68) 96 05/05/17 07:18 98 21 05/05/17 04:00 60 05/05/17 00:23 98.2 64 18 122/74 (90) 96 05/05/17 00:00 63 05/04/17 20:47 99 05/04/17 19:28 98.0 62 18 127/80 (96) Physical Exam GENERAL: Well-developed well-nourished. Morbidly obese. In no acute distress. Appears comfortable. SKIN: Warm and dry. No lesions noted. HEENT: Normocephalic. Pupils equal and round. Mucous membranes pink and moist. CARDIOVASCULAR: Regular rate and rhythm. Distant heart sounds. Tender to palpation of the sternum. RESPIRATORY: No accessory muscle use. Clear to auscultation. Breath sounds equal bilaterally. GASTROINTESTINAL: Abdomen soft, non-tender, nondistended. Bowel sounds x4. MUSCULOSKELETAL: Right knee with mild swelling. Limited ROM of right knee secondary to pain. Mild swelling of the right wrist. NEUROLOGICAL: Awake and alert. No focal neurological deficits. Moves upper and lower extremities spontaneously. Normal speech. PSYCHIATRIC: Appropriate mood and affect; insight and judgment normal. Laboratory Laboratory Tests Test 05/04/17 19:09 05/04/17 22:57 05/05/17 11:35 05/05/17 15:17 Troponin I 0.09 0.10 0.05 White Blood Count 5.2 Red Blood Count 3.77 Hemoglobin 11.9 Hematocrit 35.8 Mean Corpuscular Volume 94.9 Mean Corpuscular Hemoglobin 31.5 Mean Corpuscular Hemoglobin Concent 33.2 Red Cell Distribution Width 15.1 Platelet Count 214 Mean Platelet Volume 9.0 Neutrophils (%) (Auto) 47.7 Lymphocytes (%) (Auto) 41.6 Monocytes (%) (Auto) 8.5 Eosinophils (%) (Auto) 1.9 Basophils (%) (Auto) 0.3 Neutrophils # (Auto) 2.5 Lymphocytes # (Auto) 2.2 Monocytes # (Auto) 0.4 Eosinophils # (Auto) 0.1 Basophils # (Auto) 0.0 CBC Comment DIFF FINAL Differential Comment Blood Urea Nitrogen 17 Creatinine 1.72 Random Glucose 143 Total Protein 6.9 Albumin 3.1 Calcium Level 8.9 Alkaline Phosphatase 93 Aspartate Amino Transf (AST/SGOT) 18 Alanine Aminotransferase (ALT/SGPT) 21 Total Bilirubin 1.0 Sodium Level 141 Potassium Level 3.5 Chloride Level 104 Carbon Dioxide Level 30.0 Anion Gap 7 Estimat Glomerular Filtration Rate 37 Result Diagram: 05/05/17 1135 05/05/17 1135 Assessment and Plan Problem List: (1) CAD (coronary artery disease) ICD Codes: I25.10 - Atherosclerotic heart disease of [place] coronary artery without angina pectoris (2) Chest pain ICD Codes: R07.9 - Chest pain, unspecified Status: Acute (3) TAO (acute kidney injury) ICD Codes: N17.9 - Acute kidney failure, unspecified Status: Acute (4) Knee pain, right ICD Codes: M25.561 - Pain in right knee Status: Acute Assessment and Plan 56-year-old female with a past medical history of CAD, DM, DVT, HLD, HTN, COPD, chronic pain who presented for chest pain and shortness of breath, acute on chronic right knee pain 1. CAD, recent LAD and RCA stenting. Unremarkable series borderline troponin likely due to recent PCI. Troponin down 0.1 to 0.05. Her chest pain has subsided. No acute ECG ischemic changes. Continue aspirin, Plavix, statin, Nitropatch, carvedilol. OK to DC home from cardiology standpoint, Follow up with us as arranged in 1-2 weeks. 2. Acute kidney injury: Creatinine 2.19, down to 1.7 today. . Likely acute on chronic. Suspect secondary to recent contrast dye, on diuretics, and poor appetite. Agree holding losartan/HCTZ for now, and continue fluid hydration. Need outpt BMP follow. 3. Chronic DVTs: -Continue Xarelto Problem Qualifiers (1) Chest pain: Qualified Codes: R07.9 - Chest pain, unspecified [place] Amy Ross MD May 05, 2017 18:27
[2017-05-05] MEDS: ATORVASTATIN 20 MG TAB PO SCH (21:11)
[2017-05-05] MEDS: MONTELUKAST SODIUM 10 MG TAB PO SCH (21:12)
[2017-05-06 02:15] VITALS: PULSE 53
[2017-05-06 03:44] VITALS: BP 128/65; PULSE 76; RESP 18; TEMP 98; O2SAT 98
[2017-05-06 05:00] VITALS: PULSE 51
[2017-05-06] MEDS: INSULIN ASPART SUPPLEMENTAL SCALE SQ SCH (06:14)
[2017-05-06 07:30] VITALS: O2SAT 92
[2017-05-06] MEDS: SODIUM CHLOR 0.9% 1000 ML INJ 1,000 ML IV SCH (07:33)
[2017-05-06 07:57] LABS: BICARBONATE 29.5 MEQ/L (21.0-32.0); POTASSIUM 3.8 MEQ/L (3.5-5.1)
[2017-05-06] MEDS ORDERED: NEUR300C PO (08:12)
--- NOTE | 2017-05-06 08:13 | HHI.DCPOC ---
Discharge Care Plan Diagnosis: (1) Chest pain (2) CAD (coronary artery disease) (3) TAO (acute kidney injury) Goals to Promote Your Health * To prevent worsening of your condition and complications * To maintain your health at the optimal level Directions to Meet Your Goals Take your medications as prescribed Follow your dietary instruction Follow activity as directed Keep your appointments as scheduled Take your immunizations and boosters as scheduled If your symptoms worsen call your PCP, if no PCP go to Urgent Care Center or Emergency Room Smoking is Dangerous to Your Health. Avoid second hand smoke Call the 24-hour hour crisis hotline for domestic abuse at Jennifer Kitchen PA-C May 06, 2017 08:13
[2017-05-06 08:15] VITALS: BP 113/72; PULSE 46; RESP 18; TEMP 98.3; O2SAT 98
--- NOTE | 2017-05-06 08:19 | HHI.PR ---
Subjective Remarks Follow up for syncope, chest pain. The patient reports feeling well again this morning. Denies any further chest pains. Denies any shortness of breath. She wants to go home. She has no other medical complaints at this time. Objective Vitals Vital Signs Date Time Temp Pulse Resp B/P (MAP) Pulse Ox O2 Delivery O2 Flow Rate FiO2 05/06/17 07:30 92 21 05/06/17 03:44 98.0 76 18 128/65 (86) 98 05/05/17 23:48 98.4 75 18 128/97 (107) 98 05/05/17 20:37 97 21 05/05/17 20:25 98.2 78 18 125/65 (85) 97 05/05/17 16:33 97.8 68 18 126/60 (82) 96 05/05/17 12:20 96.8 64 18 128/63 (84) 96 05/05/17 11:41 62 05/05/17 08:21 98.3 60 18 90/57 (68) 96 I/O 05/05/17 05/05/17 05/05/17 05/06/17 05/06/17 05/06/17 07:00 15:00 23:00 07:00 15:00 23:00 Intake Total 1000 ml Balance 1000 ml Intake IV Total 1000 ml # Voids 2 Result Diagram: 05/05/17 1135 05/06/17 0655 Imaging Last Impressions Knee X-Ray 05/04/17 1038 Signed Impressions: Service Date/Time: Thursday, May 04, 2017 10:55 - CONCLUSION: Small effusion and osteoarthritis. Morro Lindsey MD Chest X-Ray 05/04/17 1037 Signed Impressions: Service Date/Time: Thursday, May 04, 2017 10:51 - CONCLUSION: No acute disease. Morro Lindsey MD Objective Remarks GENERAL: Well-nourished, well-developed pleasant middle aged obese female patient in [facility]. SKIN: Warm and dry. No rash. HEENT: Normocephalic. Atraumatic. Pupils equal and round. Mucous membranes pink and moist. CARDIOVASCULAR: Regular rate and rhythm. S1, S2 noted. No murmur appreciated. RESPIRATORY: No accessory muscle use. Clear to auscultation. Breath sounds equal bilaterally. GASTROINTESTINAL: Abdomen soft, non-tender, nondistended. Normoactive bowel sounds x4. MUSCULOSKELETAL: No obvious deformities. Extremities without clubbing, cyanosis , or edema. NEUROLOGICAL: Awake and alert. No obvious cranial nerve deficits. Motor grossly within normal limits. Normal speech. PSYCHIATRIC: Appropriate mood and affect; insight and judgment normal. Medications and IVs Current Medications Medications (Trade) Dose Ordered Sig/Gina Route Start Time Stop Time Status Last Admin (Norvasc) 10 mg DAILY PO 05/05/17 09:00 05/05/17 10:03 (Aspirin Chew) 81 mg DAILY CHEW 05/05/17 09:00 05/05/17 10:03 (Lipitor) 20 mg HS PO 05/04/17 21:00 05/05/17 21:11 (Coreg) 12.5 mg BID PO 05/04/17 21:00 05/05/17 21:14 (Plavix) 75 mg DAILY PO 05/05/17 09:00 05/05/17 10:02 (Neurontin) 600 mg TID PO 05/04/17 18:00 05/05/17 18:05 (Singulair) 10 mg HS PO 05/04/17 21:00 05/05/17 21:12 (Nitro-Dur 0.1 Mg Patch.24hr) 1 patch DAILY T-DERMAL 05/05/17 09:00 05/05/17 10:04 (Xarelto) 20 mg DAILY PO 05/04/17 15:00 05/05/17 10:04 (Symbicort 160-4.5 Inh) 2 puff BID INH 05/04/17 21:00 05/05/17 21:10 (NS Flush) 2 ml UNSCH PRN IV FLUSH 05/04/17 13:15 (NS Flush) 2 ml BID IV FLUSH 05/04/17 21:00 05/04/17 21:24 (Tylenol) 650 mg Q4H PRN PO 05/04/17 13:15 (Tylenol) 650 mg Q6H PRN PO 05/04/17 13:15 ([place] 5-325 Mg) 1 tab Q4H PRN PO 05/04/17 13:15 ([place] 10-325 Mg) 1 tab Q4H PRN PO 05/04/17 13:15 05/05/17 21:13 (Narcan Inj) 0.4 mg UNSCH PRN IV 05/04/17 13:15 (Breanne-Colace) 1 tab BID PO 05/04/17 21:00 05/05/17 21:12 Miscellaneous Information 1 DAILY T-DERMAL 05/05/17 09:00 (Catapres) 0.1 mg Q6H PRN PO 05/04/17 15:30 Sodium Chloride 1,000 ml @ 75 mls/hr [id number] IV 05/04/17 15:45 05/05/17 10:01 (D50w (Vial) Inj) 50 ml UNSCH PRN IV 05/04/17 16:00 (Glucagon Inj) 1 mg UNSCH PRN OTHER 05/04/17 16:00 (NovoLOG SUPPLEMENTAL SCALE) 1 ACHS SLIDING SCALE SQ 05/04/17 16:00 05/05/17 12:44 A/P Assessment and Plan 56-year-old female with a past medical history of CAD, DM, DVT, HLD, HTN, COPD, chronic pain who presented for chest pain and shortness of breath, acute on chronic right knee pain Chest pain and Dyspnea: Patient recently had catheterization with 2 stents placed 05/[address] Ross. Per ED report, troponin 0.09 is near patient's baseline per communication with cardiology. Reviewed: Troponin 0.09, 0.09, 0.10, 0.05. EKG with nonspecific T-wave changes. -Continue aspirin, Plavix, statin, Nitro, carvedilol -Monitor on telemetry -Consult patient's ruling technician, seen by Dr. Ross, cleared for discharge home Right knee pain: Acute on chronic secondary to arthritis. X-ray shows mild arthritis and effusion. -Continue pain control with [place] -Consult PT, no PT needed after discharge -Continue outpatient follow-up with orthopedics Acute kidney injury: Suspect secondary to recent contrast dye, on diuretics, and poor appetite. Creatinine 2.19, previously 0.83 on 02/10/13. -Discontinue home losartan/HCTZ and metformin -Continue IVF and follow-up BMP, slowly improving, Cr 1.56 today -patient instructed to repeat BMP in 2-3 days after discharge Diabetes mellitus: -Hold home metformin with TAO as above -Monitor Accu-Cheks and cover with SSI -Continue gabapentin for neuropathy -BG fairly well controlled, patient instructed to discontinue metformin, keep BG log achs and report to PCP Chronic DVTs: -Continue Xarelto Code Status Full code, but does not want any prolonged ventilation Discharge Planning Discharge patient to home Condition on discharge: Improved Heart Healthy/Diabetic Diet as tolerated Ad Yusra activity Rx written: adjusted gabapentin dosing; discontinued losartan/HCTZ and metformin ; no new meds Follow-up with primary care physician Dr. Du and ruling technician Dr. Ross Repeat BMP in 2-3 days Jennifer Kitchen PA-C May 06, 2017 8:19 am
[2017-05-06 08:30] VITALS: PULSE 52
[2017-05-06] MEDS: SODIUM CHLORIDE 0.9% FLUSH 10 ML FLUSH IV FLUSH SCH (09:00)
[2017-05-06] MEDS: CARVEDILOL 12.5 MG TAB PO SCH (09:00)
[2017-05-06] MEDS: REMOVE OLD NITRO-DUR (NITROGLYCERIN) PATCH T-DERMAL SCH (09:00)
[2017-05-06] MEDS: NITROGLYCERIN 0.1 MG/HR PATCH T-DERMAL SCH (09:00)
[2017-05-06] MEDS: ASPIRIN 81 MG CHEW TAB CHEW SCH (09:49)
[2017-05-06] MEDS: RIVAROXABAN 20 MG TAB PO SCH (09:50)
[2017-05-06] MEDS: GABAPENTIN 300 MG CAP PO SCH (09:50)
[2017-05-06] MEDS: DOCUSATE SODIUM 50 MG/SENNA 8.6 MG TAB PO SCH (09:50)
[2017-05-06] MEDS: BUDESONIDE-FORMOTEROL 160/4.5 MCG INHALER INH SCH (09:50)
[2017-05-06] MEDS: CLOPIDOGREL 75 MG TAB PO SCH (09:50)
[2017-05-06] MEDS ORDERED: CARV6.25 PO (10:40)
[2017-05-06] MEDS ORDERED: CARVEDILOL 6.25 MG TAB PO ONE (11:00)
== END 2017-05-06 11:02 | disposition home or self-care (01) ==
LOC: NEPD 10:24 → NEDA 12:42 → NEPGCP 14:15
PROVIDERS: ADMIT Hospitalist; ATTEND Hospitalist
DX: R07.9 Chest pain, unspecified (principal); N17.9 Acute kidney failure, unspecified; I25.10 Atherosclerotic heart disease of native coronary artery without angina pectoris; J44.9 Chronic obstructive pulmonary disease, unspecified; I82.509 Chronic embolism and thrombosis of unspecified deep veins of unspecified lower extremity; Z79.01 Long term (current) use of anticoagulants; Z95.5 Presence of coronary angioplasty implant and graft
CPT/HCPCS: 71010; 73564; 80048; 80053; 82550; 82552; 82948; 83735; 84484; 85025; 85610; 85730; 93005; 94150; 96360; 96361; 96372; 97162; 99285; G0378; G8987; G8988; J1815; J7030

== ENCOUNTER 2017-07-17 10:50 | Emergency (ER) | payer MEDICARE ==
[~2017-07-17 10:50] MED LIST changes: +ASPI-516 CHEW; -CARV12.5 PO; +CARV6.25 PO; -FLUT1SPR5 EACH NARE; -GABA300C5 PO; -IBUP800T23 PO; -LOSA100T3 PO; -METF500T PO; +NEUR300C PO; +NITR0.1D T-DERMAL; +PLAV75TA29 PO
[2017-07-17 10:55] VITALS: BP 130/86; PULSE 68; RESP 22; TEMP 97.4; O2SAT 100
== END 2017-07-17 13:25 | disposition left against medical advice (07) ==
LOC: NETRI 10:50
DX: Z53.21 Procedure and treatment not carried out due to patient leaving prior to being seen by health care provider (principal)

== ENCOUNTER 2017-11-13 16:17 | Emergency (ER) | payer MEDICARE ==
[~2017-11-13] VITALS: Ht 160 cm; Wt 115.0 kg
[2017-11-13 17:04] VITALS: BP 131/68; PULSE 68; RESP 17; TEMP 98.6; O2SAT 100
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
[2017-11-13] MEDS ORDERED: SODIUM CHLORIDE 0.9% FLUSH 10 ML FLUSH IV FLUSH PRN (18:45)
--- NOTE | 2017-11-13 19:04 | RADRPT ---
EXAM DATE/TIME: 11/13/2017 18:43 [facility] COMPARISON: CHEST SINGLE AP, May 04, 2017, 10:51. INDICATIONS : Patient states she has been coughing up blood. MEDICAL HISTORY : Hypertension. Myocardial infarction. Diabetes mellitus type II. COPD. SURGICAL HISTORY : Cardiac stent. ENCOUNTER: Initial ACUITY: 1 month PAIN SCORE: 0/10 LOCATION: Bilateral chest FINDINGS: No infiltrate, effusion or pneumothorax. Heart size stable, upper limits of normal to slightly enlarg ed. CONCLUSION: No acute cardiopulmonary disease. Stable, borderline cardiomegaly. Karlos Plaza MD on November 13, 2017 at 19:01 Board Certified Radiologist. This report was verified electronically.
[2017-11-13 19:26] VITALS: RESP 20
[2017-11-13 19:38] LABS: AUTOMATED NEUTROPHIL # 2.2 TH/MM3 (1.8-7.7); BASOPHIL % 0.6 % (0.0-2.0); EOSINOPHIL # 0.2 TH/MM3 (0-0.4); EOSINOPHIL % 2.6 % (0.0-4.0); HEMATOCRIT 36.5 % (35.0-46.0); HEMOGLOBIN 12.2 GM/DL (11.6-15.3); INTERNATIONAL NORMALIZED RATIO 1.1 RATIO; LYMPH % 51.8 % (9.0-44.0); LYMPHOCYTE # 3.2 TH/MM3 (1.0-4.8); MEAN CELL VOLUME 93.6 FL (80.0-100.0); MEAN CORPUSCULAR HEMOGLOBIN 31.4 PG (27.0-34.0); MEAN CORPUSCULAR HGB CONC 33.6 % (32.0-36.0); MEAN PLATELET VOLUME 8.5 FL (7.0-11.0); MONO % 9.3 % (0.0-8.0); MONOCYTE # 0.6 TH/MM3 (0-0.9); NEUT % 35.7 % (16.0-70.0); PLATELET COUNT 327 TH/MM3 (150-450); PROTHROMBIN TIME - PATIENT 11.2 SEC (9.8-11.6); RED CELL DISTRIBUTION WIDTH 15.4 % (11.6-17.2); WHITE BLOOD COUNT 6.2 TH/MM3 (4.0-11.0)
[2017-11-13 19:40] LABS: BILIRUBIN, URINE NEG (NEG); BLOOD, URINE NEG (NEG); GLUCOSE,URINE NEG (NEG); KETONE, URINE NEG (NEG); NITRITE,URINE NEG (NEG); PH, URINE 5.5 (5.0-8.5); SQUAMOUS EPITHELIAL CELL URINE 1 /hpf (0-5); URINE COLOR YELLOW (YELLW/STRAW); URINE LEUKOCYTE ESTERASE NEG (NEG)
[2017-11-13 19:48] LABS: ALT (GPT) 25 U/L (10-53)
[2017-11-13 19:50] LABS: ALBUMIN 3.7 GM/DL (3.4-5.0); AST (GOT) 30 U/L (15-37); BICARBONATE 29.8 MEQ/L (21.0-32.0); BLOOD UREA NITROGEN 15 MG/DL (7-18); CALCIUM 9.4 MG/DL (8.5-10.1); CHLORIDE 105 MEQ/L (98-107); CREATININE 0.97 MG/DL (0.50-1.00); GLOMERULAR FILTRATION RATE 72 ML/MIN (>89); GLUCOSE,RANDOM 80 MG/DL (74-106); SODIUM (NA) 141 MEQ/L (136-145)
[2017-11-13 19:51] LABS: ALKALINE PHOSPHATASE 109 U/L (45-117); TOTAL BILIRUBIN ADULT 0.6 MG/DL (0.2-1.0)
== END 2017-11-13 20:31 | disposition home or self-care (01) ==
LOC: NEPD 16:17
DX: R53.1 Weakness (principal); D72.820 Lymphocytosis (symptomatic); I12.9 Hypertensive chronic kidney disease with stage 1 through stage 4 chronic kidney disease, or unspecified chronic kidney disease; N18.9 Chronic kidney disease, unspecified; I25.10 Atherosclerotic heart disease of native coronary artery without angina pectoris; E78.00 Pure hypercholesterolemia, unspecified; I50.9 Heart failure, unspecified; J44.9 Chronic obstructive pulmonary disease, unspecified; E11.9 Type 2 diabetes mellitus without complications; Z86.718 Personal history of other venous thrombosis and embolism; Z86.711 Personal history of pulmonary embolism; Z79.01 Long term (current) use of anticoagulants; Z86.73 Personal history of transient ischemic attack (TIA), and cerebral infarction without residual deficits
CPT/HCPCS: 71045; 80053; 81001; 85025; 85610; 85730; 99284

== ENCOUNTER 2018-02-19 13:59 | Observation (INO) | payer MEDICARE, OTHER ==
[2018-02-19] VITALS (7 sets, daily range): BP systolic 92–122; BP diastolic 44–82; PULSE 61–74; RESP 16–18; TEMP 98.2–98.4; O2SAT 99–100
[~2018-02-19] VITALS: Ht 160 cm; Wt 120.0 kg
[2018-02-19 14:51] LABS: AUTOMATED NEUTROPHIL # 1.8 TH/MM3 (1.8-7.7); BASOPHIL % 0.3 % (0.0-2.0); EOSINOPHIL # 0.1 TH/MM3 (0-0.4); HEMATOCRIT 36.7 % (35.0-46.0); HEMOGLOBIN 12.4 GM/DL (11.6-15.3); LYMPH % 55.9 % (9.0-44.0); MEAN CELL VOLUME 94.1 FL (80.0-100.0); MEAN CORPUSCULAR HEMOGLOBIN 31.7 PG (27.0-34.0); MEAN CORPUSCULAR HGB CONC 33.7 % (32.0-36.0); MEAN PLATELET VOLUME 8.6 FL (7.0-11.0); MONO % 8.6 % (0.0-8.0); MONOCYTE # 0.5 TH/MM3 (0-0.9); NEUT % 33.2 % (16.0-70.0); PLATELET COUNT 243 TH/MM3 (150-450); RED CELL DISTRIBUTION WIDTH 15.4 % (11.6-17.2); WHITE BLOOD COUNT 5.4 TH/MM3 (4.0-11.0)
--- NOTE | 2018-02-19 15:03 | RADRPT ---
EXAM DATE: 02/19/2018 2:59 PM EDT AGE/SEX: 57 years / Female INDICATIONS: Short of breath and low blood pressure. CLINICAL DATA: This is the patient's initial encounter. Patient reports that signs and symptoms have been present for 3 weeks and indicates a pain score of 0/10. MEDICAL/SURGICAL HISTORY: Chronic obstructive pulmonary disease. Heart. . Heart stents. COMPARISON: [facility] [place] [place], CHEST SINGLE AP, 11/13/2017. . FINDINGS: No new focal pleural or parenchymal opacities. The cardiomediastinal contours are stable. Osseous s tructures are intact. CONCLUSION: 1. No acute cardiopulmonary disease. Electronically signed by: Ken Daley MD 02/19/2018 3:02 PM EDT
[2018-02-19 15:14] LABS: BICARBONATE 27.4 MEQ/L (21.0-32.0); BLOOD UREA NITROGEN 27 MG/DL (7-18); CALCIUM 8.4 MG/DL (8.5-10.1); CHLORIDE 103 MEQ/L (98-107); CREATININE 1.91 MG/DL (0.50-1.00); GLOMERULAR FILTRATION RATE 33 ML/MIN (>89); GLUCOSE,RANDOM 149 MG/DL (74-106); SODIUM (NA) 139 MEQ/L (136-145)
[2018-02-19 15:17] LABS: TROPONIN I LESS THAN 0.02 NG/ML (0.02-0.05)
[2018-02-19] MEDS ORDERED: SODIUM CHLOR 0.9% 1000 ML INJ 1,000 ML IV ONE ×2 (15:30)
[2018-02-19] MEDS ORDERED: DICL1KIT5 TOPICAL (16:33)
[2018-02-19] MEDS ORDERED: XARE15TA PO (16:33)
[2018-02-19] MEDS ORDERED: METF500T PO (16:33)
[2018-02-19] MEDS ORDERED: CYAN1000P IM (16:33)
[2018-02-19] MEDS ORDERED: GABA600T PO (16:33)
[2018-02-19] MEDS ORDERED: CALCIUM CARBONATE 500 MG CHEWABLE TAB CHEW ONE (17:00)
[2018-02-19 17:31] LABS: INTERNATIONAL NORMALIZED RATIO 1.2 RATIO; PROTHROMBIN TIME - PATIENT 11.8 SEC (9.8-11.6)
[2018-02-19 17:37] LABS: TROPONIN I LESS THAN 0.02 NG/ML (0.02-0.05)
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
[2018-02-19] MEDS ORDERED: ACETAMINOPHEN/HYDROcodone 325 MG/10 MG TAB PO ONE (18:30)
[2018-02-19] MEDS ORDERED: GABAPENTIN 100 MG CAP PO ONE (18:30)
--- NOTE | 2018-02-19 18:58 | RADRPT ---
EXAM DATE: 02/19/2018 6:54 PM EDT AGE/SEX: 57 years / Female INDICATIONS: Dizziness. CLINICAL DATA: This is the patient's initial encounter. Patient reports that signs and symptoms have been present for 1 day and indicates a pain score of 5/10. MEDICAL/SURGICAL HISTORY: Stroke. Cardiovascular disease. Deep venous thrombosis. None. RADIATION DOSE: 56.35 CTDI (mGy) COMPARISON: No prior exams available for comparison. TECHNIQUE: CT of the head without contrast. Using automated exposure control and adjustment of the mA and/or kV according to patient size, radiation dose was kept as low as reasonably achievable to ob tain optimal diagnostic quality images. DICOM format image data is available electronically for revi ew and comparison. FINDINGS: Cerebrum: The ventricles are normal for age. No evidence of midline shift, mass lesion, hemorrhage or acute infarction. No extraaxial fluid collections are seen. Posterior Fossa: The cerebellum and brainstem are intact. The 4th ventricle is midline. The cerebe llopontine angle is unremarkable. Extracranial: The visualized portion of the orbits is intact. Skull: The calvaria is intact. No evidence of skull fracture. CONCLUSION: 1. No acute intracranial abnormality Electronically signed by: Pedro Luis Farias MD 02/19/2018 6:57 PM EDT
[2018-02-19] MEDS ORDERED: ACETAMINOPHEN 325 MG TAB PO PRN ×2 (19:00)
[2018-02-19] MEDS ORDERED: NALOXONE HCL 0.4 MG/ML AMP IV PUSH PRN (19:00)
[2018-02-19] MEDS ORDERED: SODIUM CHLORIDE 0.9% FLUSH 10 ML FLUSH IV FLUSH PRN (19:00)
[2018-02-19] MEDS: SODIUM CHLOR 0.9% 1000 ML INJ 1,000 ML IV SCH (19:36)
--- NOTE | 2018-02-19 20:49 | HHI.HP ---
[facility] Karlos Du MD Admission Diagnosis Hypotension Diagnoses: Chief Complaint: Dizziness Travel History International Travel<30 Days: No Contact w/Intl Traveler <30 Da: No Traveled to Known Affected Are: No History of Present Illness 57 y/o female with a HTN, COPD, DM, EFRAIN s/p iron infusion, [place], sleep apnea presented to the ED with complaints of chest pain and hypotension. Patient states for the last 3 weeks she has been experiencing dizzy spells and last week she had chest pain on and then again on Saturday. She did take nitro p.o. on and Saturday but did not have much relief. She did have an iron infusion today which she stated has resolved her chest pain. She has been following up with a spray drier operator for her iron deficiency anemia and has been getting iron infusions and while there the MD noticed that her blood pressure has been continuously low. Patient states about 3 weeks ago she was started on a water pill by her PCP for bilateral ankle swelling and she had been taking it up until 3 days ago when she decided to stop it. She does not take her blood pressure regularly at home but does notice that she has been dizzy and off-balance at times. She denies any fever, chills, shortness of breath, or weakness. She does state over the last month she has lost about 14 pounds from diet and exercise. Bulk Receiver DR. Santizo PCP: Dr. Du Review of Systems Except as stated in HPI: all other systems reviewed are Neg Past Family Social History Past Medical History HTN COPD DM EFRAIN s/p iron infusion [place] sleep apnea DVTs Past Surgical History Carpal tunnel surgery Reported Medications Reported Meds & Active Scripts Active Reported Diclo Gel Topical (Diclofenac Sodium) 1% Gel 1 Applic TOPICAL QID Metformin (Metformin HCl) 500 Mg Tab 500 Mg PO BIDPC Cyanocobalamin Inj (Cyanocobalamin) 1,000 Mcg/Ml Inj 1,000 Mcg IM Q30D Xarelto (Rivaroxaban) 15 Mg Tab 15 Mg PO DAILY Gabapentin 600 Mg Tab 600 Mg PO QID Plavix (Clopidogrel Bisulfate) 75 Mg Tab 75 Mg PO DAILY Advair Diskus Inh (Fluticasone-Salmeterol Inh) 250-50 Mcg/Blist Aer 1 Puff INH BID Rinse mouth after use. Albuterol Neb (Albuterol Sulfate) 0.63 Mg/3 Ml Neb 0.63 Mg NEB Q6HR NEB PRN Singulair (Montelukast Sodium) 10 Mg Tab 10 Mg PO HS Lipitor (Atorvastatin Calcium) 20 Mg Tab 20 Mg PO HS Nitroglycerin SL (Nitroglycerin) 0.4 Mg Subl 0.4 Mg SL DIRECTED PRN ONE TABLET UNDER THE TONGUE NEEDED FOR CHEST PAIN, MAY REPEAT EVERY FIVE MINUTES FOR A TOTAL OF 3 DOSES OR CALL 911 IF NO RELIEF Multiple Vitamin 1 Tab 1 Tab PO DAILY Fish Oil + D3 (Fish Oil-Cholecalciferol) 1,200-1,000 Mg-Unit Cap 1 Cap PO DAILY Allergies: Coded Allergies: No Known Allergies (Verified Adverse Reaction, Unknown, 11/13/17) Active Ordered Medications Current Medications Medications (Trade) Dose Ordered Sig/Gina Route Start Time Stop Time Status Last Admin Sodium Chloride 1,000 ml @ 100 mls/hr Q10H IV 02/19/18 18:56 02/19/18 19:36 (NS Flush) 2 ml UNSCH PRN IV FLUSH 02/19/18 19:00 (NS Flush) 2 ml BID IV FLUSH 02/19/18 21:00 (Tylenol) 650 mg Q4H PRN PO 02/19/18 19:00 (Tylenol) 650 mg Q6H PRN PO 02/19/18 19:00 (Narcan Inj) 0.4 mg UNSCH PRN IV PUSH 02/19/18 19:00 Family History Mom: CHF Brother: [place] Social History Tobacco use: Quit 2 years ago Alcohol use: Socially Physical Exam Vital Signs Vital Signs Date Time Temp Pulse Resp B/P (MAP) Pulse Ox O2 Delivery O2 Flow Rate FiO2 02/19/18 20:27 02/19/18 20:18 74 16 114/65 (81) 100 Room Air 02/19/18 18:00 72 18 98/55 (69) 100 Room Air 02/19/18 17:14 99 Room Air 02/19/18 17:00 61 18 92/51 (65) 100 Room Air 02/19/18 16:14 99 Room Air 02/19/18 16:14 18 99 Room Air 02/19/18 14:07 98.4 64 16 92/44 (60) 100 Physical Exam GENERAL: This is a well-nourished, obese patient, in no apparent distress. SKIN: No rashes, ecchymoses or lesions. Cool and dry. HEAD: Atraumatic. Normocephalic. No temporal or scalp tenderness. EYES: Pupils equal round and reactive. CARDIOVASCULAR: Regular rate and rhythm without murmurs, gallops, or rubs. RESPIRATORY: Clear to auscultation. Breath sounds equal bilaterally. No wheezes , rales, or rhonchi. GASTROINTESTINAL: Abdomen soft, non-tender, nondistended. MUSCULOSKELETAL: Extremities without clubbing, cyanosis, or edema. No joint tenderness, effusion, or edema noted. No calf tenderness. NEUROLOGICAL: Awake and alert. Normal speech. Laboratory Laboratory Tests Test 02/19/18 14:33 02/19/18 17:10 White Blood Count 5.4 Red Blood Count 3.90 Hemoglobin 12.4 Hematocrit 36.7 Mean Corpuscular Volume 94.1 Mean Corpuscular Hemoglobin 31.7 Mean Corpuscular Hemoglobin Concent 33.7 Red Cell Distribution Width 15.4 Platelet Count 243 Mean Platelet Volume 8.6 Neutrophils (%) (Auto) 33.2 Lymphocytes (%) (Auto) 55.9 Monocytes (%) (Auto) 8.6 Eosinophils (%) (Auto) 2.0 Basophils (%) (Auto) 0.3 Neutrophils # (Auto) 1.8 Lymphocytes # (Auto) 3.0 Monocytes # (Auto) 0.5 Eosinophils # (Auto) 0.1 Basophils # (Auto) 0.0 CBC Comment DIFF FINAL Differential Comment Blood Urea Nitrogen 27 Creatinine 1.91 Random Glucose 149 Calcium Level 8.4 Sodium Level 139 Potassium Level 4.2 Chloride Level 103 Carbon Dioxide Level 27.4 Anion Gap 9 Estimat Glomerular Filtration Rate 33 Total Creatine Kinase 211 234 Creatine Kinase MB 1.5 1.3 Creatine Kinase MB % 0.7 0.6 Troponin I LESS THAN 0.02 LESS THAN 0.02 Prothrombin Time 11.8 Prothromb Time International Ratio 1.2 Activated Partial Thromboplast Time 33.5 Magnesium Level 2.0 Result Diagram: 02/19/18 1433 02/19/18 1433 Imaging Last Impressions Chest X-Ray 02/19/18 1413 Signed Impressions: CONCLUSION: 1. No acute cardiopulmonary disease. Head CT 02/19/18 0000 Signed Impressions: CONCLUSION: 1. No acute intracranial abnormality Caprini VTE Risk Assessment Caprini VTE Risk Assessment: Mod/High Risk (score >= 2) Caprini Risk Assessment Model Point Value = 1 Point Value = 2 Point Value = 3 Point Value = 5 Age 41-60 Minor surgery BMI > 25 kg/m2 Swollen legs Varicose veins or History of unexplained or recurrent spontaneous Oral contraceptives or hormone replacement Sepsis (< 1 month) Serious lung disease, including pneumonia (< 1 month) Abnormal pulmonary function Acute myocardial infarction Congestive heart failure (< 1 month) History of inflammatory bowel disease Medical patient at bed rest Age 61-74 Arthroscopic surgery Major open surgery (> 45 min) Laparoscopic surgery (> 45 min) Malignancy Confined to bed (> 72 hours) Immobilizing plaster cast Central venous access Age >= 75 History of VTE Family history of VTE Factor V Leiden Prothrombin [id number] Lupus anticoagulant Anticardiolipin antibodies Elevated serum homocysteine Heparin-induced thrombocytopenia Other congenital or acquired thrombophilia Stroke (< 1 month) Elective arthroplasty Hip, pelvis, or leg fracture Acute spinal cord injury (< 1 month) Prophylaxis Regimen Total Risk Factor Score Risk Level Prophylaxis Regimen 0-1 Low Early ambulation 2 Moderate Order ONE of the following: *Sequential Compression Device (SCD) *Heparin 5000 units SQ BID 3-4 Higher Order ONE of the following medications: *Heparin 5000 units SQ TID *Enoxaparin/Lovenox 40 mg SQ daily (WT < 150 kg, CrCl > 30 mL/min) *Enoxaparin/Lovenox 30 mg SQ daily (WT < 150 kg, CrCl > 10-29 mL/min) *Enoxaparin/Lovenox 30 mg SQ BID (WT < 150 kg, CrCl > 30 mL/min) AND/OR *Sequential Compression Device (SCD) 5 or more Highest Order ONE of the following medications: *Heparin 5000 units SQ TID (Preferred with Epidurals) *Enoxaparin/Lovenox 40 mg SQ daily (WT < 150 kg, CrCl > 30 mL/min) *Enoxaparin/Lovenox 30 mg SQ daily (WT < 150 kg, CrCl > 10-29 mL/min) *Enoxaparin/Lovenox 30 mg SQ BID (WT < 150 kg, CrCl > 30 mL/min) AND *Sequential Compression Device (SCD) Assessment and Plan Assessment and Plan 57 y/o female with a HTN, COPD, DM, EFRAIN s/p iron infusion, [place], sleep apnea presented to the ED with complaints of chest pain and hypotension. Symptomatic hypotension, patient with dizziness may be secondary to TAO -Hold blood pressure meds for now -Monitor vitals Chest pain, atypical, likely related to iron deficiency anemia Troponin 0.02 -Serial troponin ordered -2D echo ordered -Monitor telemetry Acute kidney injury, creatinine 1.9, baseline 0.9, possibly secondary to diuretic use/dehydration -IVF for hydration -Trend creatinine -Avoid nephrotoxins COPD, chronic, not in exacerbation -Resume home inhalers, duo nebs as needed Sleep apnea, chronic -CPAP ordered per home settings DVT prophylaxis: bernard Discussed Condition With Patient and RN Marcela Harris Feb 19, 2018 20:49
[2018-02-19] MEDS ORDERED: RESP: ALBUTEROL 2.5 MG/IPRATROPIUM 0.5 MG NEB (PRN) NEB (21:30)
[2018-02-19] MEDS: SODIUM CHLORIDE 0.9% FLUSH 10 ML FLUSH IV FLUSH SCH (21:32)
[2018-02-19] MEDS ORDERED: HYDR-3366 PO (21:55)
[2018-02-19] MEDS ORDERED: FLUT1SPR5 EACH NARE (21:55)
[2018-02-19] MEDS ORDERED: ASPI-516 CHEW (21:55)
[2018-02-19] MEDS ORDERED: CALC625T9 PO (21:55)
[2018-02-19] MEDS ORDERED: HEPARIN SODIUM - SQ 10,000 UNITS/ML VIAL SQ SCH (22:00)
[2018-02-19] MEDS ORDERED: ATORVASTATIN 20 MG TAB PO SCH (22:00)
[2018-02-19] MEDS: ATORVASTATIN 20 MG TAB PO SCH (23:36)
[2018-02-20] VITALS (7 sets, daily range): BP systolic 92–134; BP diastolic 51–75; PULSE 61–70; RESP 16–18; TEMP 98.1–98.5; O2SAT 100
[2018-02-20 07:39] LABS: AUTOMATED NEUTROPHIL # 1.5 TH/MM3 (1.8-7.7); BASOPHIL % 0.5 % (0.0-2.0); EOSINOPHIL # 0.1 TH/MM3 (0-0.4); EOSINOPHIL % 2.7 % (0.0-4.0); HEMATOCRIT 36.6 % (35.0-46.0); HEMOGLOBIN 12.2 GM/DL (11.6-15.3); LYMPH % 53.9 % (9.0-44.0); LYMPHOCYTE # 2.4 TH/MM3 (1.0-4.8); MEAN CELL VOLUME 93.8 FL (80.0-100.0); MEAN CORPUSCULAR HEMOGLOBIN 31.2 PG (27.0-34.0); MEAN CORPUSCULAR HGB CONC 33.2 % (32.0-36.0); MEAN PLATELET VOLUME 8.5 FL (7.0-11.0); MONO % 9.5 % (0.0-8.0); MONOCYTE # 0.4 TH/MM3 (0-0.9); NEUT % 33.4 % (16.0-70.0); PLATELET COUNT 235 TH/MM3 (150-450); RED CELL DISTRIBUTION WIDTH 15.5 % (11.6-17.2); WHITE BLOOD COUNT 4.5 TH/MM3 (4.0-11.0)
[2018-02-20 08:04] LABS: ALBUMIN 3.3 GM/DL (3.4-5.0); BICARBONATE 25.1 MEQ/L (21.0-32.0); BLOOD UREA NITROGEN 21 MG/DL (7-18); CALCIUM 8.9 MG/DL (8.5-10.1); CHLORIDE 110 MEQ/L (98-107); GLUCOSE,RANDOM 107 MG/DL (74-106); SODIUM (NA) 143 MEQ/L (136-145)
[2018-02-20 08:05] LABS: AST (GOT) 22 U/L (15-37); GLOMERULAR FILTRATION RATE 69 ML/MIN (>89)
[2018-02-20 08:08] LABS: ALKALINE PHOSPHATASE 97 U/L (45-117); ALT (GPT) 29 U/L (10-53); TOTAL BILIRUBIN ADULT 0.7 MG/DL (0.2-1.0); TOTAL PROTEIN 6.8 GM/DL (6.4-8.2)
[2018-02-20] MEDS: MONTELUKAST SODIUM 10 MG TAB PO SCH (08:34)
[2018-02-20] MEDS: CLOPIDOGREL 75 MG TAB PO SCH (08:34)
[2018-02-20] MEDS: ASPIRIN 81 MG CHEW TAB CHEW SCH (08:34)
[2018-02-20] MEDS: RIVAROXABAN 15 MG TAB PO SCH (08:34)
[2018-02-20] MEDS: GABAPENTIN 300 MG CAP PO SCH ×3 (08:34→18:00)
[2018-02-20] MEDS: SODIUM CHLORIDE 0.9% FLUSH 10 ML FLUSH IV FLUSH SCH ×2 (09:18→20:26)
[2018-02-20] MEDS: BUDESONIDE-FORMOTEROL 160/4.5 MCG INHALER INH SCH ×2 (09:18→20:26)
[2018-02-20] MEDS: SODIUM CHLOR 0.9% 1000 ML INJ 1,000 ML IV SCH ×2 (09:18→15:40)
[2018-02-20] MEDS ORDERED: PNEUMOCOCCAL POLYVALENT INJ 25 MCG/0.5 ML SYR IM ONE (10:00)
--- NOTE | 2018-02-20 15:53 | HHI.PR ---
Subjective Remarks Follow-up on patient with symptomatic hypertension. Patient seen and examined. Patient denies any complaints of dizziness at this time. 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 She does state that over the past several weeks she has had recurrent episodes of intermittent dizziness upon standing. She denies any chest pain or palpitations. She denies any complaints of shortness of breath. She denies any nausea, vomiting or abdominal pain. Objective Vitals Vital Signs Date Time Temp Pulse Resp B/P (MAP) Pulse Ox O2 Delivery O2 Flow Rate FiO2 02/20/18 15:25 98.2 64 16 112/68 (83) 100 02/20/18 12:02 61 02/20/18 10:45 98.1 64 16 107/72 (84) 100 116/75 (89) 134/59 (84) 02/20/18 07:59 98.1 65 106/59 (75) 100 02/20/18 04:09 98.5 70 16 92/51 (65) 100 02/19/18 23:43 98.2 62 17 94/50 (65) 100 02/19/18 20:45 68 122/82 (95) 100 02/19/18 20:27 02/19/18 20:18 74 16 114/65 (81) 100 Room Air 02/19/18 18:00 72 18 98/55 (69) 100 Room Air 02/19/18 17:14 99 Room Air 02/19/18 17:00 61 18 92/51 (65) 100 Room Air 02/19/18 16:14 99 Room Air 02/19/18 16:14 18 99 Room Air I/O 02/19/18 02/19/18 02/19/18 02/20/18 02/20/18 02/20/18 07:00 15:00 23:00 07:00 15:00 23:00 Intake Total 946 ml Balance 946 ml Intake Oral 946 ml # Voids 2 Result Diagram: 02/20/18 0715 02/20/18 0715 Imaging Last Impressions Chest X-Ray 02/19/18 1413 Signed Impressions: CONCLUSION: 1. No acute cardiopulmonary disease. Head CT 02/19/18 0000 Signed Impressions: CONCLUSION: 1. No acute intracranial abnormality Objective Remarks GENERAL: This is a well-nourished, obese -Spanish female patient, in no apparent distress. Awake and alert. SKIN: No rashes, ecchymoses or lesions. Warm and dry. HEAD: Atraumatic. Normocephalic. EYES: Pupils equal round and reactive. No scleral icterus. CARDIOVASCULAR: Regular rate and rhythm without murmurs, gallops, or rubs. RESPIRATORY: Clear to auscultation. Breath sounds equal bilaterally. No wheezes , rales, or rhonchi. GASTROINTESTINAL: Abdomen soft, non-tender, nondistended. No guarding. Positive bowel sounds. MUSCULOSKELETAL: Extremities without clubbing or cyanosis. Trace bilateral lower extremity edema. No calf tenderness. NEUROLOGICAL: Awake and alert. CN II through XII grossly intact. Able to move all extremities spontaneously. No focal neurologic finding appreciated. Normal speech. PSYCHIATRIC: Calm and cooperative with exam. Appropriate mood and affect. Normal judgment and insight. Procedures None A/P Assessment and Plan 57 y/o female with a HTN, COPD, DM, EFRAIN s/p iron infusion, CAD s/p HI and cardiac stenting, sleep apnea presented to the ED with complaints of chest pain and hypotension. Symptomatic hypotension, suspect secondary to recent addition of hydrochlorothiazide -Continue to hold blood pressure meds for now -Obtain orthostatic BP measurements -Obtain 2D echo -PT eval/tx -Fall precautions -Monitor vitals -Discussed with patient slow transitions and use of JASMIN hose prior to getting up Chest pain, atypical Hx of [place] and cardiac stenting Patient denies any complaints of chest pain at this time Troponins neg -Continue patient on home dose of aspirin, Plavix and statin. -2D echo ordered -Monitor telemetry Acute kidney injury, creatinine 1.9, baseline 0.9, possibly secondary to diuretic use/dehydration Creatinine improved to 1/GFR 69 after IV fluid hydration -Avoid nephrotoxins -Continue to monitor kidney function as indicated COPD, chronic, not in exacerbation -Continue on home inhalers and Singulair -Duo nebs as needed -Continue to monitor respiratory status DM Diabetic neuropathy -Change to heart healthy diabetic diet -Accu-Cheks and insulin sliding scale ordered -Continue gabapentin for neuropathy Sleep apnea, chronic -CPAP ordered per home settings Iron deficiency anemia, undergoing iron infusions, last infusion 3 weeks ago Hemoglobin appears stable -Continue to monitor CBC as indicated Hx of DVT -Continue on Xarelto DVT prophylaxis: xarelto Discharge Planning Not ready for discharge. Dai Rai Feb 20, 2018 15:53
[2018-02-20] MEDS ORDERED: GLUCAGON 1 MG/ML VIAL OTHER PRN (18:30)
[2018-02-20] MEDS ORDERED: DEXTROSE 50% IN WATER 50 ML VIAL(D50) IV PUSH PRN (18:30)
[2018-02-20 18:40] LABS: BACTERIA, URINE OCC /hpf; BILIRUBIN, URINE NEG (NEG); BLOOD, URINE SMALL (NEG); GLUCOSE,URINE NEG (NEG); KETONE, URINE NEG (NEG); NITRITE,URINE NEG (NEG); URINE COLOR Straw (YELLW/STRAW); URINE LEUKOCYTE ESTERASE NEG (NEG)
--- NOTE | 2018-02-20 18:44 | EKG ---
Date Performed: 02/19/2018 Time Performed: 14:24:00 PTAGE: 57 years EKG: Sinus rhythm SEPTAL MYOCARDIAL INFARCTION ABNORMAL ECG Since the PREVIOUS TRACING , no significant change noted PREVIOUS TRACIN05/04/2017 23.13 DOCTOR: Cassie Lerma Interpretating Date/Time 02/20/2018 18:42:27
[2018-02-20] MEDS: ATORVASTATIN 20 MG TAB PO SCH (20:26)
[2018-02-20] MEDS: INSULIN ASPART SUPPLEMENTAL SCALE SQ SCH (20:33)
[2018-02-20] MEDS: ACETAMINOPHEN/HYDROcodone 325 MG/10 MG TAB PO PRN (20:58)
[2018-02-21] VITALS (9 sets, daily range): BP systolic 111–152; BP diastolic 63–80; PULSE 52–72; RESP 16–18; TEMP 98.1–98.8; O2SAT 99–100
[2018-02-21] MEDS: GABAPENTIN 300 MG CAP PO SCH ×3 (07:51→18:00)
[2018-02-21] MEDS: RIVAROXABAN 15 MG TAB PO SCH (07:51)
[2018-02-21] MEDS: MONTELUKAST SODIUM 10 MG TAB PO SCH (07:51)
[2018-02-21] MEDS: CLOPIDOGREL 75 MG TAB PO SCH (07:51)
[2018-02-21] MEDS: BUDESONIDE-FORMOTEROL 160/4.5 MCG INHALER INH SCH ×2 (07:52→20:32)
[2018-02-21] MEDS: SODIUM CHLORIDE 0.9% FLUSH 10 ML FLUSH IV FLUSH SCH ×2 (07:52→20:32)
[2018-02-21] MEDS: ASPIRIN 81 MG CHEW TAB CHEW SCH (07:52)
[2018-02-21] MEDS: INSULIN ASPART SUPPLEMENTAL SCALE SQ SCH ×4 (07:59→20:31)
--- NOTE | 2018-02-21 10:11 | HHI.PR ---
Subjective Remarks Follow-up on patient with symptomatic hypotension. Patient seen and examined. Patient denies any complaints of dizziness. She does report intermittent sharp midsternal nonradicular chest pain when rolling over in bed and when sitting up that occurred last night and this morning. She denies any associated nausea, vomiting, palpitations or shortness of breath. Patient states her chest pain is not similar to when she has had her previous [place]. Objective Vitals Vital Signs Date Time Temp Pulse Resp B/P (MAP) Pulse Ox O2 Delivery O2 Flow Rate FiO2 02/21/18 09:08 98.7 52 18 152/80 (104) 100 02/21/18 08:00 60 02/21/18 06:01 21 02/21/18 03:46 98.1 57 16 111/63 (79) 100 02/21/18 00:00 65 02/20/18 22:37 98.1 66 18 111/65 (80) 100 02/20/18 21:58 14 02/20/18 20:05 68 02/20/18 15:25 98.2 64 16 112/68 (83) 100 02/20/18 12:02 61 02/20/18 10:45 98.1 64 16 107/72 (84) 100 116/75 (89) 134/59 (84) I/O 02/20/18 02/20/18 02/20/18 02/21/18 02/21/18 02/21/18 07:00 15:00 23:00 07:00 15:00 23:00 Intake Total 946 ml 800 ml 720 ml Balance 946 ml 800 ml 720 ml Intake Oral 946 ml 720 ml IV Total 800 ml # Voids 2 5 Result Diagram: 02/20/18 0715 02/20/18 0715 Imaging Last Impressions Chest X-Ray 02/19/18 1413 Signed Impressions: CONCLUSION: 1. No acute cardiopulmonary disease. Head CT 02/19/18 0000 Signed Impressions: CONCLUSION: 1. No acute intracranial abnormality Objective Remarks GENERAL: This is a well-nourished, obese -Indian female patient, in no apparent distress. Awake and alert. Sitting on side of bed. SKIN: No rashes, ecchymoses or lesions. Warm and dry. HEAD: Atraumatic. Normocephalic. EYES: Pupils equal round and reactive. No scleral icterus. CARDIOVASCULAR: Regular rate and rhythm without murmurs, gallops, or rubs. RESPIRATORY: Clear to auscultation. Breath sounds equal bilaterally. No wheezes , rales, or rhonchi. GASTROINTESTINAL: Abdomen soft, non-tender, nondistended. No guarding. Positive bowel sounds. MUSCULOSKELETAL: Extremities without clubbing or cyanosis. Trace bilateral lower extremity edema. No calf tenderness. NEUROLOGICAL: Awake and alert. CN II through XII grossly intact. Able to move all extremities spontaneously. No focal neurologic finding appreciated. Normal speech. PSYCHIATRIC: Calm and cooperative with exam. Appropriate mood and affect. Normal judgment and insight. Procedures None A/P Assessment and Plan 57 y/o female with a HTN, COPD, DM, EFRAIN s/p iron infusion, CAD s/p [place] and cardiac stenting, sleep apnea presented to the ED with complaints of chest pain and hypotension. Symptomatic hypotension, suspect secondary to recent addition of hydrochlorothiazide. BP much improved, now 152/80 this morning. Patient has no complaints of dizziness today when getting up and ambulating around the room and to the bathroom. Echo with EF 65-70%, moderate tricuspid regurgitation, mild concentric LVH Orthostatic BP measurements negative -Continue to hold blood pressure meds for now -PT eval -no needs identified -Fall precautions -Monitor vitals -Discussed with patient slow transitions and use of JASMIN hose prior to getting up Chest pain, atypical Hx of [place] and cardiac stenting Patient complaining today of midsternal nonradicular chest pain when turning over in bed as well as when sitting up. Suspect it is musculoskeletal given history as well as patient's body habitus. Troponins neg -Continue patient on home dose of aspirin, Plavix and statin. -Lexiscan ordered -Monitor telemetry Acute kidney injury, creatinine 1.9, baseline 0.9, possibly secondary to diuretic use/dehydration Creatinine improved to 1/GFR 69 after IV fluid hydration -Avoid nephrotoxins -Continue to monitor kidney function as indicated COPD, chronic, not in exacerbation -Continue on home inhalers and Singulair -Duo nebs as needed -Continue to monitor respiratory status DM Diabetic neuropathy -Continue on heart healthy diabetic diet -Accu-Cheks and insulin sliding scale ordered -Continue gabapentin for neuropathy Sleep apnea, chronic -CPAP ordered per home settings Iron deficiency anemia, undergoing iron infusions, last infusion 3 weeks ago Hemoglobin appears stable -Continue to monitor CBC as indicated Hx of DVT -Continue on Xarelto DVT prophylaxis: xarelto Discharge Planning Not ready for discharge. Possible discharge later today if Lexiscan is able to be completed, if not likely discharge tomorrow Dai Rai Feb 21, 2018 10:11
[2018-02-21] MEDS: ACETAMINOPHEN/HYDROcodone 325 MG/10 MG TAB PO PRN ×2 (11:25→20:31)
--- NOTE | 2018-02-21 12:56 | ECHRPT ---
Indication: hEART FAILURE CONCLUSIONS The left ventricular systolic function is hyperdynamic with an estimated ejection fraction in the ra nge of 65- 70%. Normal left ventricular size. Mild concentric left ventricular hypertrophy. No regional wall motion abnormalities are present. There is moderate tricuspid regurgitation. The estimated pulmonary arterial pressure is 43.6 mmHg. Trivial pulmonary valve regurgitation. BP: / HR: Rhythm: MEASUREMENTS (Male / Female) Normal Values Technical Quality:Mildly technically difficult chinedu dy 2D ECHO LV Diastolic Diameter PLAX 5.0 cm 4.2 - 5.9 / 3.9 - 5.3 cm LV Systolic Diameter PLAX 3.4 cm IVS Diastolic Thickness 1.3 cm 0.6 - 1.0 / 0.6 - 0.9 cm LVPW Diastolic Thickness 1.3 cm 0.6 - 1.0 / 0.6 - 0.9 cm LV Relative Wall Thickness 0.5 LVOT Diameter 1.8 cm LA Systolic Diameter LX 3.9 cm 3.0 - 4.0 / 2.7 - 3.8 cm M-MODE Aortic Root Diameter MM 1.8 cm LA Systolic Diameter MM 4.0 cm LA Ao Ratio MM 2.2 AV Cusp Separation MM 1.6 cm DOPPLER AV Peak Velocity 182.0 cm/s AV Peak Gradient 13.2 mmHg LVOT Peak Velocity 133.0 cm/s LVOT Peak Gradient 7.1 mmHg AV Area Cont Eq pk 1.9 cm MV Peak Velocity 105.0 cm/s MV Peak Gradient 4.4 mmHg MV Mean Velocity 70.2 cm/s MV Mean Gradient 2.0 mmHg MV Area PHT 3.1 cm Mitral E Point Velocity 99.2 cm/s Mitral A Point Velocity 84.9 cm/s Mitral E to A Ratio 1.2 TR Peak Velocity 290.0 cm/s TR Peak Gradient 33.6 mmHg Right Atrial Pressure 10.0 mmHg Pulmonary Artery Systolic Pressu 43.6 mmHg Right Ventricular Systolic Press 43.6 mmHg PV Peak Velocity 93.7 cm/s PV Peak Gradient 3.5 mmHg FINDINGS LEFT VENTRICLE The left ventricular systolic function is hyperdynamic with an estimated ejection fraction in the ra nge of 65- 70%. Normal left ventricular size. Mild concentric left ventricular hypertrophy. No regional wall motion abnormalities are present. RIGHT VENTRICLE Normal right ventricular size and systolic function. LEFT ATRIUM The left atrial size is upper normal. RIGHT ATRIUM The right atrial size is normal. ATRIAL SEPTUM Normal atrial septal thickness without atrial level shunting by limited color doppler interrogation. AORTA The aortic root and proximal ascending aorta are normal in size on limited imaging. MITRAL VALVE Structurally normal mitral valve. No mitral valve stenosis or regurgitation. AORTIC VALVE Trileaflet aortic valve. No aortic valve stenosis or regurgitation. TRICUSPID VALVE Structurally normal tricuspid valve. There is moderate tricuspid regurgitation. The estimated pulmonary arterial pressure is 43.6 mmHg. PULMONARY VALVE Trivial pulmonary valve regurgitation. VESSELS The inferior vena cava is normal in size. PERICARDIUM No pericardial effusion. Pancho Gómez MD (Electronically Signed) Final Date:21 February 2018 12:56
[2018-02-21] MEDS ORDERED: cloNIDine HCL 0.1 MG TAB PO PRN (16:15)
[2018-02-21] MEDS ORDERED: POLYETHYLENE GLYCOL 17 GM PKG PO ONE (18:00)
[2018-02-21] MEDS: DOCUSATE SODIUM 50 MG/SENNA 8.6 MG TAB PO SCH (20:32)
[2018-02-21] MEDS: ATORVASTATIN 20 MG TAB PO SCH (20:32)
[2018-02-22] VITALS: PULSE 55
[2018-02-22 04:00] VITALS: PULSE 55
[2018-02-22 04:30] VITALS: BP 113/69; PULSE 57; RESP 16; TEMP 98.5; O2SAT 100
--- NOTE | 2018-02-22 07:19 | HHI.PR ---
Subjective Remarks Follow-up on patient with hypotension. Patient seen and examined. Patient denies any complaints of dizziness today. She denies any complaints of chest pain, palpitations or shortness of breath. No new medical issues reported. Discussed with nursing staff. Objective Vitals Vital Signs Date Time Temp Pulse Resp B/P (MAP) Pulse Ox O2 Delivery O2 Flow Rate FiO2 02/22/18 04:30 98.5 57 16 113/69 (84) 100 02/22/18 04:00 55 02/22/18 00:00 55 02/21/18 23:49 98.2 59 16 113/70 (84) 100 02/21/18 20:56 98.7 66 16 117/76 (90) 100 02/21/18 20:00 67 02/21/18 16:30 98.8 55 18 128/80 (96) 99 02/21/18 15:00 72 02/21/18 09:08 98.7 52 18 152/80 (104) 100 02/21/18 08:00 60 I/O 02/21/18 02/21/18 02/21/18 02/22/18 02/22/18 02/22/18 07:00 15:00 23:00 07:00 15:00 23:00 Intake Total 970 ml Balance 970 ml Intake Oral 970 ml # Voids 2 Result Diagram: 02/20/18 0715 02/20/18 0715 Objective Remarks GENERAL: This is a well-nourished, obese -Indian female patient, in no apparent distress. Awake and alert. Sitting on side of bed. Appears comfortable. SKIN: No rashes, ecchymoses or lesions. Warm and dry. HEAD: Atraumatic. Normocephalic. EYES: Pupils equal round and reactive. No scleral icterus. CARDIOVASCULAR: Regular rate and rhythm without murmurs, gallops, or rubs. RESPIRATORY: Clear to auscultation. Breath sounds equal bilaterally. No wheezes , rales, or rhonchi. GASTROINTESTINAL: Abdomen soft, non-tender, nondistended. No guarding. Positive bowel sounds. MUSCULOSKELETAL: Extremities without clubbing or cyanosis. Trace bilateral lower extremity edema. No calf tenderness. NEUROLOGICAL: Awake and alert. CN II through XII grossly intact. Able to move all extremities spontaneously. No focal neurologic finding appreciated. Normal speech. PSYCHIATRIC: Calm and cooperative with exam. Appropriate mood and affect. Normal judgment and insight. Procedures None A/P Assessment and Plan 57 y/o female with a HTN, COPD, DM, EFRAIN s/p iron infusion, CAD s/p TX and cardiac stenting, sleep apnea presented to the ED with complaints of chest pain and hypotension. Symptomatic hypotension, suspect secondary to recent addition of hydrochlorothiazide. BP much improved, 137/62 Patient has no complaints of dizziness today when getting up and ambulating around the room and to the bathroom. Echo with EF 65-70%, moderate tricuspid regurgitation, mild concentric LVH Orthostatic BP measurements negative -Continue to hold blood pressure meds for now -PT eval -no needs identified -Fall precautions -Monitor vitals -Discussed with patient slow transitions and use of JASMIN hose prior to getting up Chest pain, atypical Hx of TX and cardiac stenting Patient complaining today of midsternal nonradicular chest pain when turning over in bed as well as when sitting up. Suspect it is musculoskeletal given history as well as patient's body habitus. Troponins neg -Continue patient on home dose of aspirin, Plavix and statin. -02/22, patient has no complaints of chest pain today -Lexiscan ordered - to be completed today -Monitor telemetry Acute kidney injury, creatinine 1.9, baseline 0.9, possibly secondary to diuretic use/dehydration Creatinine improved to 1/GFR 69 after IV fluid hydration -Avoid nephrotoxins -Continue to monitor kidney function as indicated COPD, chronic, not in exacerbation -Continue on home inhalers and Singulair -Duo nebs as needed -Continue to monitor respiratory status DM Diabetic neuropathy -Continue on heart healthy diabetic diet -Accu-Cheks and insulin sliding scale ordered -Continue gabapentin for neuropathy Sleep apnea, chronic -CPAP ordered per home settings Iron deficiency anemia, undergoing iron infusions, last infusion 3 weeks ago Hemoglobin appears stable -Continue to monitor CBC as indicated Hx of DVT -Continue on Xarelto DVT prophylaxis: xarelto Discharge Planning Likely discharge later today once Lexiscan results Dai Rai Feb 22, 2018 07:19
[2018-02-22 08:00] VITALS: BP 144/75; PULSE 66; RESP 20; TEMP 97.7; O2SAT 100
[2018-02-22] MEDS: INSULIN ASPART SUPPLEMENTAL SCALE SQ SCH ×2 (08:00→12:00)
[2018-02-22] MEDS ORDERED: REGADENOSON INJ 0.4 MG/5 ML SYR ONE (08:48)
[2018-02-22] MEDS: MONTELUKAST SODIUM 10 MG TAB PO SCH (08:55)
[2018-02-22] MEDS: ASPIRIN 81 MG CHEW TAB CHEW SCH (08:55)
[2018-02-22] MEDS: DOCUSATE SODIUM 50 MG/SENNA 8.6 MG TAB PO SCH (08:56)
[2018-02-22] MEDS: BUDESONIDE-FORMOTEROL 160/4.5 MCG INHALER INH SCH (08:56)
[2018-02-22] MEDS: GABAPENTIN 300 MG CAP PO SCH (08:56)
[2018-02-22] MEDS: RIVAROXABAN 15 MG TAB PO SCH (08:56)
[2018-02-22] MEDS: SODIUM CHLORIDE 0.9% FLUSH 10 ML FLUSH IV FLUSH SCH (09:00)
[2018-02-22 09:53] VITALS: PULSE 56
[2018-02-22 12:00] VITALS: BP 137/62; PULSE 76; RESP 20; TEMP 97.5; O2SAT 98
--- NOTE | 2018-02-22 12:19 | RADRPT ---
EXAM DATE: 02/22/2018 11:45 AM EDT AGE/SEX: 57 years / Female INDICATIONS:Angina. Myocardial infarction Chest pain. CLINICAL DATA: This is the patient's initial encounter. Patient reports that signs and symptoms have been present for 1 day and indicates a pain score of 1/10. MEDICAL/SURGICAL HISTORY: Congestive heart failure. Diabetes mellitus type II. Chronic obstru ctive pulmonary disease. Hypertension. Coronary artery stent. COMPARISON: [facility], NM MYOCARDIAL PERFUSION, GATED (LEXISCAN), 02/03/2015. . DOSE: 30 mCi Tc 99m Myoview at rest 30.1 mCi [id number] at stress 0.4 mg Lexiscan STRESS SYMPTOMS: Short of breath. EJECTION FRACTION: 53 % TECHNIQUE: The patient underwent pharmacologic stress with infusion of prescribed dose. Continuous ECG tracing was monitored during stress. Gated SPECT imaging was performed after stress and conventi onal SPECT imaging was performed at rest. The examination was performed on a SPECT/CT scanner, both attenuation and non-corrected datasets were reviewed. FINDINGS: Distribution: The maximum perfused segment at stress is in the wall. Perfusion Study: Matched defects along the anterior wall and apex. No reversible perfusion defects Gated Study: There are intact wall motion and wall thickening without hypokinetic or dyskinetic segm ents. The ejection fraction is calculated at 53%. RISK CATEGORY: Intermediate (1-3 % Annual Mortality Rate) CONCLUSION: 1. No reversible perfusion defects to suggest ischemia. 2. Ejection fraction 53%. Electronically signed by: Pedro Luis Farias MD 02/22/2018 12:18 PM EDT
--- NOTE | 2018-02-22 13:00 | HHI.DCPOC ---
Discharge Care Plan Diagnosis: (1) Hypotension (2) TAO (acute kidney injury) (3) Chest pain (4) CAD (coronary artery disease) (5) Diabetes Goals to Promote Your Health * To prevent worsening of your condition and complications * To maintain your health at the optimal level Directions to Meet Your Goals Recommend keeping a blood pressure log to take with you to your upcoming Cardiology appointment Take your medications as prescribed Follow your dietary instruction Follow activity as directed Keep your appointments as scheduled Take your immunizations and boosters as scheduled If your symptoms worsen call your PCP, if no PCP go to Urgent Care Center or Emergency Room Smoking is Dangerous to Your Health. Avoid second hand smoke Call the 24-hour hour crisis hotline for domestic abuse at Dai Rai Feb 22, 2018 13:00
--- NOTE | 2018-02-22 13:09 | HHI.DS ---
Discharge Summary Admission Date Feb 19, 2018 at 18:11 Discharge Date: Feb 22, 2018 Admitting Diagnosis Hypotension (1) Hypotension ICD Code: I95.9 - Hypotension, unspecified (2) TAO (acute kidney injury) ICD Code: N17.9 - Acute kidney failure, unspecified Status: Acute (3) Chest pain ICD Code: R07.9 - Chest pain, unspecified Status: Acute (4) Diabetes ICD Code: E11.9 - Type 2 diabetes mellitus without complications (5) CAD (coronary artery disease) ICD Code: I25.10 - Atherosclerotic heart disease of tribal coronary artery without angina pectoris Procedures None Brief History - From Admission 57 y/o female with a HTN, COPD, DM, EFRAIN s/p iron infusion, PR, sleep apnea presented to the ED with complaints of chest pain and hypotension. Patient states for the last 3 weeks she has been experiencing dizzy spells and last week she had chest pain on and then again on Saturday. She did take nitro p.o. on and Saturday but did not have much relief. She did have an iron infusion today which she stated has resolved her chest pain. She has been following up with a communications electrician supervisor for her iron deficiency anemia and has been getting iron infusions and while there the MD noticed that her blood pressure has been continuously low. Patient states about 3 weeks ago she was started on a water pill by her PCP for bilateral ankle swelling and she had been taking it up until 3 days ago when she decided to stop it. She does not take her blood pressure regularly at home but does notice that she has been dizzy and off-balance at times. She denies any fever, chills, shortness of breath, or weakness. She does state over the last month she has lost about 14 pounds from diet and exercise. 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 Santizo PCP: Dr. Du CBC/BMP: 02/20/18 0715 02/20/18 0715 Significant Findings Laboratory Tests Test 02/19/18 14:33 02/19/18 17:10 02/20/18 02:29 02/20/18 07:15 Red Blood Count 3.90 MIL/MM3 (4.00-5.30) 3.90 MIL/MM3 (4.00-5.30) Lymphocytes (%) (Auto) 55.9 % (9.0-44.0) 53.9 % (9.0-44.0) Monocytes (%) (Auto) 8.6 % (0.0-8.0) 9.5 % (0.0-8.0) Blood Urea Nitrogen 27 MG/DL (7-18) 21 MG/DL (7-18) Creatinine 1.91 MG/DL (0.50-1.00) Random Glucose 149 MG/DL (74-106) 107 MG/DL (74-106) Calcium Level 8.4 MG/DL (8.5-10.1) Estimat Glomerular Filtration Rate 33 ML/MIN (>89) 69 ML/MIN (>89) Total Creatine Kinase 211 U/L (26-192) 234 U/L (26-192) Troponin I LESS THAN 0.02 NG/ML LESS THAN 0.02 NG/ML LESS THAN 0.02 NG/ML Prothrombin Time 11.8 SEC (9.8-11.6) Activated Partial Thromboplast Time 33.5 SEC (24.3-30.1) Neutrophils # (Auto) 1.5 TH/MM3 (1.8-7.7) Albumin 3.3 GM/DL (3.4-5.0) Chloride Level 110 MEQ/L (98-107) Test 02/20/18 18:10 Urine Occult Blood SMALL (NEG) Urine Bacteria OCC /hpf (NONE) Imaging Last Impressions Myocardial Perfusion Scan Nuc Med 02/21/18 0000 Signed Impressions: CONCLUSION: 1. No reversible perfusion defects to suggest ischemia. 2. Ejection fraction 53%. Chest X-Ray 02/19/18 1413 Signed Impressions: CONCLUSION: 1. No acute cardiopulmonary disease. Head CT 02/19/18 0000 Signed Impressions: CONCLUSION: 1. No acute intracranial abnormality PE at Discharge GENERAL: This is a well-nourished, obese -[place]ub[place] female patient, in no apparent distress. Awake and alert. Sitting on side of bed. SKIN: No rashes, ecchymoses or lesions. Warm and dry. HEAD: Atraumatic. Normocephalic. EYES: Pupils equal round and reactive. No scleral icterus. CARDIOVASCULAR: Regular rate and rhythm without murmurs, gallops, or rubs. RESPIRATORY: Clear to auscultation. Breath sounds equal bilaterally. No wheezes , rales, or rhonchi. GASTROINTESTINAL: Abdomen soft, non-tender, nondistended. No guarding. Positive bowel sounds. MUSCULOSKELETAL: Extremities without clubbing or cyanosis. Trace bilateral lower extremity edema. No calf tenderness. NEUROLOGICAL: Awake and alert. CN II through XII grossly intact. Able to move all extremities spontaneously. No focal neurologic finding appreciated. Normal speech. PSYCHIATRIC: Calm and cooperative with exam. Appropriate mood and affect. Normal judgment and insight. Pt update on day of discharge Patient seen and examined. Patient denies any complaints of chest pain. She denies any dizziness, headache, palpitation, numbness/tingling. She denies any shortness of breath. She denies any N/V or abdominal pain. Hospital Course Patient admitted with symptomatic hypotension with BP 92/44 at ED presentation. Patient recently started on HCTZ as outpatient. She was given IV fluid hydration. Orthostatic BP measurements obtained and were negative. Patient underwent echocardiogram which revealed a EF of 65-70%, mild concentric left ventricular hypertrophy and moderate tricuspid regurgitation. JASMIN hose were placed and patient was instructed on slow transitions and use of JASMIN hose prior to getting up out of the bed. Patient also with complaints of atypical chest pain different than previous episodes of chest pain she had prior to her PR last year. Troponins were negative 3 and EKG failed to show any evidence of acute ischemic changes. Patient underwent a Lexiscan which showed no reversible perfusion defects to suggest ischemia and EF of 53%. Patient's chest pain resolved. Patient's blood pressure improved. She has also had mild TAO likely secondary to diuretic use and dehydration. Patient was treated with IV fluids with improvement in her kidney function. Patient was discharged from [facility] to home in satisfactory condition. She was given instructions for close follow-up with her meter reader chief in [place] and keep her previously scheduled follow-up appointment in his office this coming . She was advised on keeping a blood pressure log to take with her to her meter reader chief appointment. Pt Condition on Discharge: Stable Discharge Disposition: Discharge Home Discharge Time: > 30 minutes Discharge Instructions DIET: Follow Instructions for: Heart Healthy Diet, Diabetic Diet Activities you can perform: Regular-No Restrictions Follow up Referrals: Cardiology - 1 Week PCP Follow-up - 1 Week Continued Medications: Albuterol Neb (Albuterol Neb) 0.63 Mg/3 Ml Neb 0.63 MG NEB Q6HR NEB PRN for SHORTNESS OF BREATH, #25 NEBULE 0 Refills Aspirin (Aspirin) 81 Mg Chew 81 MG CHEW DAILY, TAB 0 Refills Atorvastatin (Lipitor) 20 Mg Tab 40 MG PO HS for Cholesterol Management, #30 TAB 0 Refills Calcium Polycarbophil (Fiber Laxative) 625 Mg Tab 625 MG PO DAILY PRN for CONSTIPATION, TAB 0 Refills Clopidogrel (Plavix) 75 Mg Tab 75 MG PO DAILY for Blood Clot Prevention, #30 TAB 0 Refills Cyanocobalamin Inj (Cyanocobalamin Inj) 1,000 Mcg/Ml Inj 1000 MCG IM Q30D, #1 VIAL 0 Refills Diclofenac Sodium Gel Topical (Diclo Gel Topical) 1% Gel 1 APPLIC TOPICAL HS for Joint Pain, #1 TUBE 0 Refills Fluticasone Nasal Molina (Flonase Nasal Molina) 50 Mcg/Act Molina 50 MCG EACH NARE BID for Allergies, #1 BOTTLE 0 Refills Fluticasone-Salmeterol Inh (Advair Diskus Inh) 250-50 Mcg/Blist Aer 1 PUFF INH BID, #1 INHALER 0 Refills Rinse mouth after use. Gabapentin (Gabapentin) 600 Mg Tab 600 MG PO TID, #90 TAB 0 Refills Hydrocodone-Acetaminophen ([place]) 10-325 Mg Tab 1 TAB PO QID PRN for PAIN, TAB 0 Refills Metformin (Metformin) 500 Mg Tab 500 MG PO BIDPC for Blood Sugar Management, #60 TAB 0 Refills Montelukast (Singulair) 10 Mg Tab 10 MG PO DAILY, #30 TAB 0 Refills Rivaroxaban (Xarelto) 15 Mg Tab 15 MG PO DAILY for Blood Clot Prevention, TAB 0 Refills Dai Rai Feb 22, 2018 13:09
[2018-02-22] MEDS ORDERED: CLOPIDOGREL 75 MG TAB PO SCH (14:00)
== END 2018-02-22 14:16 | disposition home or self-care (01) ==
LOC: NEPE 13:59 → NEDA 18:11 → NEPGCP 20:30
PROVIDERS: ADMIT Family Medicine; ATTEND Family Medicine
DX: I95.9 Hypotension, unspecified (principal); N17.9 Acute kidney failure, unspecified; E11.9 Type 2 diabetes mellitus without complications; I25.10 Atherosclerotic heart disease of native coronary artery without angina pectoris; T50.2X5A Adverse effect of carbonic-anhydrase inhibitors, benzothiadiazides and other diuretics, initial encounter; E86.0 Dehydration; D50.9 Iron deficiency anemia, unspecified; R07.89 Other chest pain; I50.9 Heart failure, unspecified; J44.9 Chronic obstructive pulmonary disease, unspecified; I11.0 Hypertensive heart disease with heart failure; G47.30 Sleep apnea, unspecified; M25.472 Effusion, left ankle; M25.471 Effusion, right ankle; Z79.84 Long term (current) use of oral hypoglycemic drugs; Z79.4 Long term (current) use of insulin
CPT/HCPCS: 70450; 71045; 78452; 80048; 80053; 81001; 82550; 82552; 82948; 83735; 84443; 84484; 85025; 85610; 85730; 93005; 93017; 93306; 96360; 96361; 96372; 97161; 99285; A9502; G0378; G8987; G8988; J1815; J2785; J7030